=== PATIENT | male | born 1950 ===

== ENCOUNTER 2018-08-22 13:38 | Observation (INO) ==
--- NOTE | 2018-08-22 14:35 | XRay Report ---
SINGLE VIEW CHEST CLINICAL HISTORY: Generalized weakness. FINDINGS: An AP, portable, upright chest radiograph is compared to study 07/10/2015. The cardiomediast inal silhouette is unremarkable. The lungs and pleural spaces are clear. No pneumothorax is seen. The bony thorax is grossly intact. IMPRESSION: No active disease in the chest. Electronically signed by: Luis Felipe Kulkarni M.D. 08/22/2018 2:34 PM
[2018-08-22 14:38] LABS: Basophils # (auto) 0.03 K/uL (0-0.2); Basophils % (auto) 0.5 %; Eosinophils # (auto) 0.49 K/uL (0-0.5); Eosinophils % (auto) 8.6 %; Hematocrit (blood only) 37.9 % (42-52); Hemoglobin 13.3 g/dL (14.0-18.0); Immature Granulocytes # (auto) 0.01 K/uL (0.00-0.02); Immature Granulocytes % (auto) 0.2 %; Lymphocytes # (auto) 1.55 K/uL (1.2-3.4); Lymphocytes % (auto) 27.2 %; Mean Corpuscular Hgb Conc 35.1 g/dL (32-36); Mean Corpuscular Volume 88.6 fL (80-100); Mean Platelet Volume 9.3 fL (7.4-10.4); Monocytes # (auto) 0.49 K/uL (0.11-0.59); Monocytes % (auto) 8.6 %; Neutrophils # (auto) 3.12 K/uL (1.4-6.5); Neutrophils % (auto) 54.9 %; Platelet Count 201 K/uL (130-400); RDW Coefficient of Variation 12.7 % (11.5-14.5); RDW Standard Deviation 40.1 fL (36.4-46.3); Red Blood Count 4.28 M/uL (4.7-6.1); White Blood Count 5.69 K/uL (4.8-10.8)
--- NOTE | 2018-08-22 14:48 | CT Scan Report ---
CT SCAN OF THE BRAIN WITHOUT IV CONTRAST CLINICAL HISTORY: Fall. Head injury. COMPARISON STUDY: No priors. TECHNIQUE: Unenhanced axial CT scan of the brain is performed from the vertex to the skull base. A d ose lowering technique was utilized adhering to the principles of ALARA. CT DOSE: 611.78 mGycm FINDINGS: Brain parenchyma: The brain parenchyma is normal in appearance. There is no hemorrhage, mass effect, or evidence of acute territorial ischemia by CT criteria. Roque-white matter differentiation is preser anastasiya. No extra-axial fluid collection is seen. Ventricles, sulci, cisterns: Normal in configuration. Intracranial vasculature: There is atherosclerotic calcification of the cavernous carotid and vertebr al arteries. Calvarium: There is no depressed calvarial fracture. Sinuses and mastoids: The visualized paranasal sinuses are clear. The mastoid air cells are well pneu matized. Orbits: The bony orbits are grossly intact. There are bilateral ocular lens implants. IMPRESSION: There is no hemorrhage, mass effect, or evidence of acute territorial ischemia by CT colby mancini. Electronically signed by: Luis Felipe Kulkarni M.D. 08/22/2018 2:45 PM
[2018-08-22 14:55] LABS: Alanine Aminotransferase 34 U/L (12-78); Aspartate Aminotransferase 23 U/L (15-37); BUN Creatinine Ratio 15.3 (10-20); Blood Urea Nitrogen 18 mg/dl (7-18); Calcium 8.5 mg/dl (8.5-10.1); Carbon Dioxide 26 mmol/L (21-32); Chloride 105 mmol/L (98-107); Est GFR (African American) 73.6; Est GFR (Non-African American) 63.5; Glucose 125 mg/dl (70-99); Magnesium 1.9 mg/dl (1.8-2.4); Potassium 4.1 mmol/L (3.5-5.1); Sodium 136 mmol/L (136-145)
--- NOTE | 2018-08-22 14:55 | CT Scan Report ---
CT SCAN OF THE CERVICAL SPINE CLINICAL HISTORY: Fall. COMPARISON STUDY: No priors. TECHNIQUE: CT scan of the cervical spine is performed from the skull base to the upper thoracic spine . Images are reviewed in the axial, sagittal, and coronal planes. IV contrast was not administered fo r this examination. A dose lowering technique was utilized adhering to the principles of ALARA. CT DOSE: 406.99 mGycm FINDINGS: Skeletal structures: The skeletal structures are osteopenic. There is no evidence of fracture or subl uxation involving the cervical spine. Vertebral body height and alignment are maintained. The odonto id process and lateral masses are intact. The atlantoaxial articulation is preserved noting mild prod uctive degenerative change. The spinous processes appear intact. Intervertebral discs: The disc spaces are well maintained. Central canal: Widely patent. Soft tissues: The prevertebral and paraspinous soft tissues are within normal limits. There is athero sclerotic calcification of the carotid bulbs. Calvarium: The visualized calvarium at the skull base appears intact. Brain parenchyma: Partially visualized brain parenchyma the skull base is within normal limits. Sinuses and mastoids: The visualized paranasal sinuses are clear. The mastoid air cells are well pneu matized. Lung apices: Clear as visualized. IMPRESSION: There is no evidence of fracture or subluxation involving the cervical spine. Electronically signed by: Luis Felipe Kulkarni M.D. 08/22/2018 2:54 PM
[2018-08-22 14:59] LABS: INR 1.2 (0.9-1.1); Partial Thromboplastin Time 25.7 Seconds (21.0-31.0); Prothrombin Time 12.1 Seconds (9.0-12.0)
[2018-08-22 15:06] LABS: Albumin Globulin Ratio 1.2 (0.9-2); Alkaline Phosphatase 95 U/L (45-117); Bilirubin,Total 1.2 mg/dl (0.2-1); Globulin 3.3 gm/dl (2.5-4.0); Total Protein 7.3 gm/dl (6.4-8.2); Troponin I < 0.015 ng/ml (0-0.045)
[2018-08-22 15:51] LABS: Appearance Urine Clear (Clear); Bilirubin Urine Negative (Negative); Color Urine Yellow; Glucose Urine UA Negative (Negative); Ketones Urine Negative (Negative); Leukocyte Esterase Urine Negative (Negative); Nitrite Urine Negative (Negative); Protein Urine Negative (Negative); Specific Gravity Urine 1.007 (1.000-1.030); Urobilinogen Urine Negative (Negative); pH Urine 5.5 (4.5-7.5)
--- NOTE | 2018-08-22 16:15 | Emergency Department Note ---
Entered by Kelly Porter acting as a scribe for Chavez Delgado DO History of Present Illness General Chief complaint: Hypertension Stated complaint: FELL 2 DAYS AGO, LOSSING BALANCE, ELEVATED BP Time Seen by Provider: 08/22/18 13:46 Source: patient Mode of arrival: ambulatory Limitations: no limitations History of Present Illness Onset (ago): day(s) 2 Radiation: non-radiation Pain Consistency: + constant Maximum Pain Intensity: 7 Relieved By: + none Exacerbated By: + none Associated symptoms: + other (+back pain); no nausea/vomiting Treatments prior to arrival: none The patient is a 67 year old male who presents to the Emergency Room with complaints hypertension. He reports he fell getting out of the shower 2 days ago , and landed on his buttocks and head after losing his balance. He originally felt fine, but has noticed dizziness for the past day as well as elevated blood pressure. He has never experienced issues with blood pressure in the past. He denies any tinnitus, nausea or vomiting. He complains of back pain but states he has chronic back pain and it actually felt better after the fall. Home Medications Home Medications Medication Instructions Recorded Confirmed Type amoxicillin 500 mg PO QAM 08/22/18 08/22/18 History aspirin [Aspir-81] 81 mg PO QPM 08/22/18 08/22/18 History atenolol 25 mg PO HS 08/22/18 08/22/18 History atorvastatin 80 mg PO QAM 08/22/18 08/22/18 History bimatoprost 1 drp OPHTHALMIC (EYE) DIRECTED 08/22/18 08/22/18 History carisoprodol [Soma] 350 mg PO HS 08/22/18 08/22/18 History clopidogrel 75 mg PO QPM 08/22/18 08/22/18 History isosorbide mononitrate 30 mg PO QAM 08/22/18 08/22/18 History levothyroxine 112 mcg PO DAILYBB 08/22/18 08/22/18 History metformin 500 mg PO BID 08/22/18 08/22/18 History multivitamin 1 tab PO QPM 08/22/18 08/22/18 History niacin 500 mg PO QPM 08/22/18 08/22/18 History ranitidine HCl [Zantac] 150 mg PO BID 08/22/18 08/22/18 History ranolazine [Ranexa] 500 mg PO BID 08/22/18 08/22/18 History Allergies Allergy/AdvReac Type Severity Reaction Status Date / Time tamsulosin Allergy Intermediate INCREASED Verified 08/22/18 14:57 B/P, [place], DECREASED URINE OUTPUT Past Med/Surg History Medical History CAD (coronary artery disease) Social History Feels Safe at Home: Yes Smoking Status: Never smoker Review of Systems See HPI for pertinent positives & negatives. and A total of 10 systems reviewed and were otherwise negative Physical Exam Vital Signs Vital Signs - 24 hr 08/22/18 13:44 08/22/18 14:18 08/22/18 14:26 Temperature 36.3 C L Temperature Source Oral Sepsis Recent Fever Within 48 Hours No Sepsis New/Unexplained Change in Mental Status No Sepsis Action Taken by Nursing No Action Required Pulse Rate 60 60 Pulse Rate [Apical] 50 L Respiratory Rate 20 20 20 Respiratory Effort / Characteristics Non-Labored Spontaneous Respiratory Depth Normal Respiratory Pattern Regular Blood Pressure 150/90 H Blood Pressure [Right Arm] Blood Pressure Mean 110 Blood Pressure Mean [Right Arm] Blood Pressure Position [Right Arm] Pulse Oximetry 100 100 100 Oxygen Delivery Method Room Air Room Air Room Air 08/22/18 14:51 08/22/18 15:00 08/22/18 15:30 Temperature Temperature Source Sepsis Recent Fever Within 48 Hours Sepsis New/Unexplained Change in Mental Status Sepsis Action Taken by Nursing Pulse Rate Pulse Rate [Apical] 52 L 53 L 52 L Respiratory Rate 20 16 20 Respiratory Effort / Characteristics Non-Labored Spontaneous Non-Labored Spontaneous Respiratory Depth Normal Normal Respiratory Pattern Regular Blood Pressure Blood Pressure [Right Arm] 120/62 107/62 97/59 L Blood Pressure Mean Blood Pressure Mean [Right Arm] 81 77 71 Blood Pressure Position [Right Arm] Lying Pulse Oximetry 99 98 99 Oxygen Delivery Method Room Air Room Air Room Air 08/22/18 17:37 Temperature Temperature Source Sepsis Recent Fever Within 48 Hours Sepsis New/Unexplained Change in Mental Status Sepsis Action Taken by Nursing Pulse Rate Pulse Rate [Apical] 64 Respiratory Rate 18 Respiratory Effort / Characteristics Respiratory Depth Respiratory Pattern Blood Pressure Blood Pressure [Right Arm] 132/75 Blood Pressure Mean Blood Pressure Mean [Right Arm] 94 Blood Pressure Position [Right Arm] Pulse Oximetry 99 Oxygen Delivery Method Room Air GENERAL: Patient is awake, alert, and in no acute distress.Patient is resting comfortably and showing no signs of anxiety EYES: The conjunctivae are clear. The pupils are round and reactive. EARS, NOSE, MOUTH AND THROAT: The nose is without any evidence of any deformity. Mucous membranes are moist. Tongue is midline. TM clear bilaterally. NECK: The neck is nontender and supple. RESPIRATORY: Normal respiratory effort is noted. There is no evidence of wheezing rhonchi or rales to auscultation. CARDIOVASCULAR: Regular rate and rhythm noted. There no murmurs rubs or gallops normal S1 normal S2 GASTROINTESTINAL: The abdomen is soft. Bowel sounds are present in all quadrants. Abdomen is nontender. BACK: No midline tenderness or or step-off noted range of motion in flexion extension as well as rotation no signs of muscle spasm noted. MUSCULOSKELETAL/EXTREMITIES: There is no evidence of gross deformity. Full range of motion is noted in the hips and shoulders. SKIN: There is no obvious evidence of any rash. There are no petechiae, pallor or cyanosis noted. NEUROLOGIC: Patient is awake alert and oriented x3. [Strength is symmetric. Patellar reflexes are 2+ bilaterally.] Course 1350: Past medical records reviewed. The patient was evaluated in room B4, and a complete history and physical examination were performed. 1510: I reevaluated the patient. He is resting comfortably. 1600: I reevaluated the patient. He is resting comfortably. I discussed his results and discharge instructions and he verbalized complete understanding and agreement. 1755: I discussed this case with the on-call [facility] neurologist, Dr. Siegel. She recommends continued antiplatelet therapy and further workup including MRI. 1810: I discussed this case with the on-call [facility] hospitalist, Dr. Pelayo. He will evaluate the patient in the emergency department for further management and disposition. Administered Medications Ioversol (Optiray 320 125ml) 120 ml IV ONCE PRN PRN Reason: Interaction Checking Stop: 08/26/18 17:08 Last Admin: 08/22/18 17:10 Dose: 120 ml Medical Decision Making Differential Diagnosis Differential: Benign Hypertension, Hypertensive Urgency/Emergency, Cardiovascular Pathology, Endocrine, Metabolic/Electrolyte, Renal Disease, Endorgan Damage, amongst other pathologies entertained. Medical Records Attestation: I reviewed the patient's medical records. Home Medications Current Medication List: was personally reviewed by me Laboratory Data Attestation: I reviewed the patient's lab results. Result diagrams: 08/22/18 14:20 08/22/18 14:20 Lab Results 08/22/18 08/22/18 08/22/18 Range/Units 14:20 14:20 14:20 WBC 5.69 (4.8-10.8) K/uL RBC 4.28 L (4.7-6.1) M/uL Hgb 13.3 L (14.0-18.0) g/dL Hct 37.9 L (42-52) % MCV 88.6 (80-100) fL MCH 31.1 (25-34) pg MCHC 35.1 (32-36) g/dL RDW Std Deviation 40.1 (36.4-46.3) fL RDW Coeff of Olaf 12.7 (11.5-14.5) % Plt Count 201 (130-400) K/uL MPV 9.3 (7.4-10.4) fL Immature Gran % (Auto) 0.2 % Neut % (Auto) 54.9 % Lymph % (Auto) 27.2 % [place] % (Auto) 8.6 % Eos % (Auto) 8.6 % Baso % (Auto) 0.5 % Immature Gran # (Auto) 0.01 (0.00-0.02) K/uL Neut # (Auto) 3.12 (1.4-6.5) K/uL Lymph # (Auto) 1.55 (1.2-3.4) K/uL [place] # (Auto) 0.49 (0.11-0.59) K/uL Eos # (Auto) 0.49 (0-0.5) K/uL Baso # (Auto) 0.03 (0-0.2) K/uL PT 12.1 H (9.0-12.0) Seconds INR 1.2 H (0.9-1.1) APTT 25.7 (21.0-31.0) Seconds PTT Ratio 1.0 Sodium 136 (136-145) mmol/L Potassium 4.1 (3.5-5.1) mmol/L Chloride 105 (98-107) mmol/L Carbon Dioxide 26 (21-32) mmol/L Anion Gap 5.0 (3-11) BUN 18 (7-18) mg/dl Creatinine 1.18 (0.6-1.4) mg/dl Est Cr Clr Drug Dosing Not Reportable Est GFR ( Amer) 73.6 Est GFR (Non-Af Amer) 63.5 BUN/Creatinine Ratio 15.3 (10-20) Glucose 125 H (70-99) mg/dl Calcium 8.5 (8.5-10.1) mg/dl Magnesium 1.9 (1.8-2.4) mg/dl Total Bilirubin 1.2 H (0.2-1) mg/dl AST 23 (15-37) U/L ALT 34 (12-78) U/L Alkaline Phosphatase 95 (45-117) U/L Troponin I < 0.015 (0-0.045) ng/ml Total Protein 7.3 (6.4-8.2) gm/dl Albumin 4.0 (3.4-5.0) gm/dl Globulin 3.3 (2.5-4.0) gm/dl Albumin/Globulin Ratio 1.2 (0.9-2) TSH 0.110 L (0.300-4.500) uIu/ml Free T4 1.50 (0.8-1.6) ng/dl Urine Color Urine Appearance (Clear) Urine pH (4.5-7.5) Ur Specific [place] (1.000-1.030) Urine Protein (Negative) Urine Glucose (UA) (Negative) Urine Ketones (Negative) Urine Blood (Negative) Urine Nitrite (Negative) Urine Bilirubin (Negative) Urine Urobilinogen (Negative) Ur Leukocyte Esterase (Negative) 08/22/18 08/22/18 Range/Units 14:20 15:05 WBC (4.8-10.8) K/uL RBC (4.7-6.1) M/uL Hgb (14.0-18.0) g/dL Hct (42-52) % MCV (80-100) fL MCH (25-34) pg MCHC (32-36) g/dL RDW Std Deviation (36.4-46.3) fL RDW Coeff of Olaf (11.5-14.5) % Plt Count (130-400) K/uL MPV (7.4-10.4) fL Immature Gran % (Auto) % Neut % (Auto) % Lymph % (Auto) % [place] % (Auto) % Eos % (Auto) % Baso % (Auto) % Immature Gran # (Auto) (0.00-0.02) K/uL Neut # (Auto) (1.4-6.5) K/uL Lymph # (Auto) (1.2-3.4) K/uL [place] # (Auto) (0.11-0.59) K/uL Eos # (Auto) (0-0.5) K/uL Baso # (Auto) (0-0.2) K/uL PT (9.0-12.0) Seconds INR (0.9-1.1) APTT (21.0-31.0) Seconds PTT Ratio Sodium (136-145) mmol/L Potassium (3.5-5.1) mmol/L Chloride (98-107) mmol/L Carbon Dioxide (21-32) mmol/L Anion Gap (3-11) BUN (7-18) mg/dl Creatinine (0.6-1.4) mg/dl Est Cr Clr Drug Dosing Est GFR ( Amer) Est GFR (Non-Af Amer) BUN/Creatinine Ratio (10-20) Glucose (70-99) mg/dl Calcium (8.5-10.1) mg/dl Magnesium (1.8-2.4) mg/dl Total Bilirubin (0.2-1) mg/dl AST (15-37) U/L ALT (12-78) U/L Alkaline Phosphatase (45-117) U/L Troponin I (0-0.045) ng/ml Total Protein (6.4-8.2) gm/dl Albumin (3.4-5.0) gm/dl Globulin (2.5-4.0) gm/dl Albumin/Globulin Ratio (0.9-2) TSH (0.300-4.500) uIu/ml Free T4 Cancelled (0.8-1.6) ng/dl Urine Color Yellow Urine Appearance Clear (Clear) Urine pH 5.5 (4.5-7.5) Ur Specific [place] 1.007 (1.000-1.030) Urine Protein Negative (Negative) Urine Glucose (UA) Negative (Negative) Urine Ketones Negative (Negative) Urine Blood Negative (Negative) Urine Nitrite Negative (Negative) Urine Bilirubin Negative (Negative) Urine Urobilinogen Negative (Negative) Ur Leukocyte Esterase Negative (Negative) Imaging Data Radiologist's Impression: Radiology results as stated below per my review and the radiologist's interpretation: CT SCAN OF THE BRAIN WITHOUT IV CONTRAST CLINICAL HISTORY: Fall. Head injury. COMPARISON STUDY: No priors. TECHNIQUE: Unenhanced axial CT scan of the brain is performed from the vertex to the skull base. A dose lowering technique was utilized adhering to the principles of ALARA. CT DOSE: 611.78 mGycm FINDINGS: Brain parenchyma: The brain parenchyma is normal in appearance. There is no hemorrhage, mass effect, or evidence of acute territorial ischemia by CT criteria. Roque-white matter differentiation is preserved. No extra-axial fluid collection is seen. Ventricles, sulci, cisterns: Normal in configuration. Intracranial vasculature: There is atherosclerotic calcification of the cavernous carotid and vertebral arteries. Calvarium: There is no depressed calvarial fracture. Sinuses and mastoids: The visualized paranasal sinuses are clear. The mastoid air cells are well pneumatized. Orbits: The bony orbits are grossly intact. There are bilateral ocular lens implants. IMPRESSION: There is no hemorrhage, mass effect, or evidence of acute territorial ischemia by CT criteria. Electronically signed by: Luis Felipe Kulkarni M.D. 08/22/2018 2:45 PM SINGLE VIEW CHEST CLINICAL HISTORY: Generalized weakness. FINDINGS: An AP, portable, upright chest radiograph is compared to study 2014. The cardiomediastinal silhouette is unremarkable. The lungs and pleural spaces are clear. No pneumothorax is seen. The bony thorax is grossly intact. IMPRESSION: No active disease in the chest. Electronically signed by: Luis Felipe Kulkarni M.D. 08/22/2018 2:[address] SCAN OF THE CERVICAL SPINE CLINICAL HISTORY: Fall. COMPARISON STUDY: No priors. TECHNIQUE: CT scan of the cervical spine is performed from the skull base to the upper thoracic spine. Images are reviewed in the axial, sagittal, and coronal planes. IV contrast was not administered for this examination. A dose lowering technique was utilized adhering to the principles of ALARA. CT DOSE: 406.99 mGycm FINDINGS: Skeletal structures: The skeletal structures are osteopenic. There is no evidence of fracture or subluxation involving the cervical spine. Vertebral body height and alignment are maintained. The odontoid process and lateral masses are intact. The atlantoaxial articulation is preserved noting mild productive degenerative change. The spinous processes appear intact. Intervertebral discs: The disc spaces are well maintained. Central canal: Widely patent. Soft tissues: The prevertebral and paraspinous soft tissues are within normal limits. There is atherosclerotic calcification of the carotid bulbs. Calvarium: The visualized calvarium at the skull base appears intact. Brain parenchyma: Partially visualized brain parenchyma the skull base is within normal limits. Sinuses and mastoids: The visualized paranasal sinuses are clear. The mastoid air cells are well pneumatized. Lung apices: Clear as visualized. IMPRESSION: There is no evidence of fracture or subluxation involving the cervical spine. Electronically signed by: Luis Felipe Kulkarni M.D. 08/22/2018 2:54 PM ECG Data Attestation: I personally reviewed and interpreted this ECG as follows: Indication: other (hypertension) Rate (beats per minute): 50 Rhythm: sinus bradycardia Findings: + other (No acute ST segments); no ectopy Comparison ECG Date: from (07/10/2015) Change: no significant change MDM Narrative The patient is a 67-year-old male who presented to the emergency department for vertigo type symptoms. The patient does relate that he had a fall recently where he struck the back of his head. He had pain in the right occiput. Patient did not have any focal neurologic deficit. He had no difficulty ambulating or ataxia. The patient was concerned that he may have a head injury. The patient was also concerned because his blood pressure was fluctuating and was found to be elevated on multiple occasions. I discussed the patient's laboratory and radiographic studies with him. He was reevaluated multiple times. At this time I would be concerned that this could be vertigo or possibly related to a postconcussive type syndrome. The patient was encouraged to rest and avoid any strenuous activity. He was also encouraged to continue all medications as prescribed and follow-up with his family doctor for possible further testing such as MRI of the brain or referral to a concussion specialist or neurologist. Otherwise I did encourage him to return to the emergency department immediately if symptoms change worsen or the need arises. I went to reevaluate the patient prior to discharge and he had talked to a friend who recommended a CT angiography to ensure there is no dissection. Given the fall I thought this might be appropriate. I discussed the CT angiography of the head and neck with the patient. 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 This could be the cause of his symptoms leading to a central cause for his vertigo. This does not appear as likely but I discussed his case with the on-call [facility] neurologist as well as the on- call [facility] hospitalist. The patient may require further neuro imaging and observation to ensure that he does not develop worsening posterior fossa symptoms. The patient was agreeable to this evaluation. Impression & Plan VBI (vertebrobasilar insufficiency), Head injury, Concussion, Vertigo Discharge Plan Visit Data Chief Complaint: Hypertension Stated Complaint: FELL 2 DAYS AGO, LOSSING BALANCE, ELEVATED BP ED Provider: Chavez Delgado Discharge Problem: VBI (vertebrobasilar insufficiency), Head injury, Concussion, Vertigo Patient Disposition: Home - Self-Care Condition: Good Discharge Instructions Angelito/Other Patient Handouts: ED Concussion, ED Vertigo Unspecified Activity Restrictions/Additional Instructions: Continue all medications as prescribed. Rest and avoid any strenuous activity. Call your family doctor to schedule a follow-up appointment. You may require further studies such as an MRI of the brain or possibly a referral to a concussion specialist or neurologist to further evaluate the cause your symptoms. Consider trying meclizine for symptomatic relief. Return to the emergency department immediately if symptoms change worsen or the need arises. Forms Stand Alone Forms: My [facility], Important Visit Information Prescriptions Prescriptions: No Action multivitamin Tablet 1 tab PO QPM RF: 0 carisoprodol [Soma] 350 mg Tablet 350 mg PO HS RF: 0 amoxicillin 500 mg Capsule 500 mg PO QAM RF: 0 atorvastatin 80 mg Tablet 80 mg PO QAM RF: 0 isosorbide mononitrate 30 mg Tablet Extended Release 24 Hr 30 mg PO QAM RF: 0 atenolol 25 mg Tablet 25 mg PO HS RF: 0 bimatoprost 0.03 % Drops 1 drp OPHTHALMIC (EYE) DIRECTED RF: 0 clopidogrel 75 mg Tablet 75 mg PO QPM RF: 0 aspirin [Aspir-81] 81 mg Tablet,Delayed Release (Dr/Ec) 81 mg PO QPM RF: 0 ranitidine HCl [Zantac] 150 mg Tablet 150 mg PO BID RF: 0 niacin 500 mg Capsule, Extended Release 500 mg PO QPM RF: 0 metformin 500 mg Tablet Extended Release 24 Hr 500 mg PO BID RF: 0 levothyroxine 112 mcg Tablet 112 mcg PO DAILYBB RF: 0 ranolazine [Ranexa] 500 mg Tablet Extended Release 12 Hr 500 mg PO BID RF: 0 Referrals Referrals: London Ryan MD [Primary Care Provider] - The scribe's documentation has been prepared under my direction and personally reviewed by me in its entirety. I confirm that the note above accurately reflects all work, treatment, procedures, and medical decision making performed by me.
[2018-08-22] MEDS ORDERED: OPTIRAY 320 125ml IV PRN (17:09)
--- NOTE | 2018-08-22 17:30 | CT Scan Report ---
CT ANGIOGRAPHY OF THE NECK WITH CONTRAST CLINICAL HISTORY: Fall. COMPARISON STUDY: None. Technique: CT angiography of the carotid and vertebral arteries was obtained using DeluuxraBranch2 320 IV and 3D reconstruction on an independent workstation. NASCET criteria was utilized. Automated exposure c ontrol was utilized for the study. A dose lowering technique was utilized adhering to the principles of ALARA. Findings: Lung apices are clear. There is no cervical lymphadenopathy. There is no cervical spine fra cture. No dissection is noted within the major vessels of the neck. There is mild atherosclerotic julian que within the major vessels of the neck. There is no stenosis within the bilateral common carotid an d internal carotid arteries. The origin of the left vertebral artery is suboptimally assessed on this exam but there is no evidence for a severe stenosis. There is moderate to severe stenosis of the pro ximal intracranial portion of the left vertebral artery IMPRESSION: 1. No dissection or stenosis within the major vessels of the neck. Mild atherosclerotic plaque. 2. 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 Electronically signed by: Ganga Adams M.D. 08/22/2018 5:29 PM
--- NOTE | 2018-08-22 17:35 | CT Scan Report ---
CTA ANGIOGRAPHY OF THE HEAD CLINICAL HISTORY: Fall. COMPARISON STUDY: Head CT performed earlier today. TECHNIQUE: Helical axial images of the head were obtained following uneventful intravenous administr ation of 120 cc of Optiray 320. Automated exposure control was utilized for the study. A dose lower ing technique was utilized adhering to the principles of ALARA. CT DOSE: 620.33 mGy.cm FINDINGS: There is moderate to severe stenosis within the proximal intracranial portion of the left v ertebral artery. persistence of the right posterior cerebral artery is noted. There is moderate calcified plaque within the bilateral cavernous carotids with minimal stenosis of the left cavernous carotid. There is no intracranial aneurysm or dissection. No abrupt vessel cut off is identified. No acute intracranial hemorrhage, midline shift or mass effect is present. No calvarial fracture is jennifer ntified. IMPRESSION: 1. No abrupt vessel cut off, dissection or aneurysm within the intracranial circulation. 2. 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 3. Moderate calcified atherosclerotic plaque within the bilateral cavernous carotids with minimal navneet rowing of the left cavernous carotid. Electronically signed by: Ganga Adams M.D. 08/22/2018 5:33 PM
--- NOTE | 2018-08-22 19:29 | Discharge Summary ---
Date of Service August 22, 2018 Discharge Data Allergies Allergy/AdvReac Type Severity Reaction Status Date / Time tamsulosin Allergy Intermediate INCREASED Verified 08/22/18 14:57 B/P, MONTAÑO, DECREASED URINE OUTPUT Consultations 08/22/18 18:12 ED Decision to Admit Stat Ordered Studies 08/22/18 13:52 CT cervical spine wo con Stat CT head/brain wo con Stat 08/22/18 16:55 CT angio head w con Stat CT angio neck with con Stat Discharge Plan Visit Data Chief Complaint: Hypertension Stated Complaint: FELL 2 DAYS AGO, LOSSING BALANCE, ELEVATED BP ED Provider: Chavez Delgado Patient Disposition: Home - Self-Care Condition: Good Discharge Instructions Krames/Other Patient Handouts: ED Concussion, ED Vertigo Unspecified Activity Restrictions/Additional Instructions: Continue all medications as prescribed. Rest and avoid any strenuous activity. Call your family doctor to schedule a follow-up appointment. You may require further studies such as an MRI of the brain or possibly a referral to a concussion specialist or neurologist to further evaluate the cause your symptoms. Consider trying meclizine for symptomatic relief. Return to the emergency department immediately if symptoms change worsen or the need arises. Forms Stand Alone Forms: [facility], Important Visit Information Prescriptions Prescriptions: No Action multivitamin Tablet 1 tab PO QPM RF: 0 carisoprodol [Soma] 350 mg Tablet 350 mg PO HS RF: 0 amoxicillin 500 mg Capsule 500 mg PO BID RF: 0 atorvastatin 80 mg Tablet 80 mg PO QAM RF: 0 isosorbide mononitrate 30 mg Tablet Extended Release 24 Hr 30 mg PO QAM RF: 0 atenolol 25 mg Tablet 25 mg PO HS RF: 0 bimatoprost 0.03 % Drops 1 drp OPHTHALMIC (EYE) DIRECTED RF: 0 clopidogrel 75 mg Tablet 75 mg PO QPM RF: 0 aspirin [Aspir-81] 81 mg Tablet,Delayed Release (Dr/Ec) 81 mg PO QPM RF: 0 ranitidine HCl [Zantac] 150 mg Tablet 150 mg PO BID RF: 0 niacin 500 mg Capsule, Extended Release 500 mg PO QPM RF: 0 metformin 500 mg Tablet Extended Release 24 Hr 500 mg PO BID RF: 0 levothyroxine 112 mcg Tablet 112 mcg PO DAILYBB RF: 0 ranolazine [Ranexa] 500 mg Tablet Extended Release 12 Hr 500 mg PO BID RF: 0 B12 1,000 mg 1 tab PO TID RF: 0 magnesium 400 mg 1 tab PO TID RF: 0 Referrals Referrals: London Ryan MD [Primary Care Provider] -
[2018-08-22] MEDS ORDERED: ASPIRIN 81 MG ECTAB PO SCH (21:00)
[2018-08-22] MEDS ORDERED: ATENOLOL 25 MG TABLET PO SCH (21:00)
[2018-08-22] MEDS ORDERED: B12 PO SCH (21:00)
[2018-08-22] MEDS ORDERED: SODIUM CHLORIDE 0.9% 1000ML 1,000 ML IV SCH (21:00)
[2018-08-22] MEDS ORDERED: NON-FORMULARY MEDICATION (Magnesium 1 TAB) PO SCH (21:00)
[2018-08-22] MEDS ORDERED: MULTIVITAMIN TAB PO SCH (21:00)
[2018-08-22] MEDS ORDERED: CLOPIDOGREL BISULFATE 75 MG TAB PO SCH (21:00)
[2018-08-22] MEDS ORDERED: NIACIN EXTENDED REL 500 MG TABCR PO SCH (21:00)
[2018-08-22] MEDS: AMOXICILLIN 500 MG CAP PO SCH (21:28)
[2018-08-22] MEDS: RANOLAZINE 500 MG ER TAB PO SCH (21:31)
[2018-08-22] MEDS: [UNRECOGNIZED DRUG - OTHER] SCH (23:05)
--- NOTE | 2018-08-23 02:10 | History & Physical Report ---
Date of Service August 22, 2018 Assessment & Plan (1) Vertigo: Mechanical Fall Due to recent head injury from the fall CT head showed no intracranial abnormality CTA head and neck showed moderate to severe stenosis of the proximal intracranial portion of the left vertebral artery. 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 recommended to get an MRI of the brain PT/OT eval Fall precaution (2) Diabetes mellitus type 2 in nonobese: Most recent Hba1c 6.8 on 05/21 Hold metformin Continue monitor BS (3) CAD (coronary artery disease): Denies any chest pain Continue plavix, aspirin, atenolol and statin (4) Dyslipidemia: On Statin (5) Hypothyroid: TSH is low Will decrease levotyroxine to 100mcg Check TSH in 4 to 6 weeks DVT px on lovenox subq CODE status Full code History of Present Illness Chief Complaint: Dizziness Primary Care Provider: London Ryan MD 67 yo Male with PMH of Diabetes, hypothyroidism, dyslipidemia present to the ER with dizziness. Pt said that about 2 days ago he slipped and fell well getting out of the shower and hit his head. He said that the next day that he noted some dizziness. He said that he did a neuro exam and was normal. He said that he continues to have intermittent episodes of dizziness. He said that he feels like the room was spinning around. He said that he has chronic back and hip pain but since after the fall that he walked alittle better because he put more weight on the good leg to compensate for the bad one. He said that he noticed muscle fasciculations in his lower extremities. He said that he checked his BP and was elevated in the 160 systolic. He said that he called a classmate that advised him to go to the ER for eval. Pt said that after the alysia Hallpike and kelley maneuver done in the ER, now he developed a headache. CT head done in the ER showed no acute finding. CTA head showed moderate to severe stenosis of the proximal intracranial portion of the left vertebral artery. Denies any chest pain, palpitation, slurred speech and weakness and numbness. Allergies Allergy/AdvReac Type Severity Reaction Status Date / Time tamsulosin Allergy Intermediate INCREASED Verified 08/22/18 14:57 B/P, MONTAÑO, DECREASED URINE OUTPUT Home Medications Home Medications Medication Instructions Recorded Confirmed Type B12 1 tab PO TID 08/22/18 08/22/18 History amoxicillin 500 mg PO BID 08/22/18 08/22/18 History aspirin [Aspir-81] 81 mg PO QPM 08/22/18 08/22/18 History atenolol 25 mg PO HS 08/22/18 08/22/18 History atorvastatin 80 mg PO QAM 08/22/18 08/22/18 History bimatoprost 1 drp OPHTHALMIC (EYE) DIRECTED 08/22/18 08/22/18 History carisoprodol [Soma] 350 mg PO HS 08/22/18 08/22/18 History clopidogrel 75 mg PO QPM 08/22/18 08/22/18 History isosorbide mononitrate 30 mg PO QAM 08/22/18 08/22/18 History levothyroxine 112 mcg PO DAILYBB 08/22/18 08/22/18 History magnesium 1 tab PO TID 08/22/18 08/22/18 History metformin 500 mg PO BID 08/22/18 08/22/18 History multivitamin 1 tab PO QPM 08/22/18 08/22/18 History niacin 500 mg PO QPM 08/22/18 08/22/18 History ranitidine HCl [Zantac] 150 mg PO BID 08/22/18 08/22/18 History ranolazine [Ranexa] 500 mg PO BID 08/22/18 08/22/18 History Past Med/Surg History Medical History CAD (coronary artery disease) Social History Current Living Situation: Spouse Other Information That Helps Us Care for You: No Feels Safe at Home: Yes Safety Concerns: Feels Safe At This Time Smoking Status: Never smoker Hx Alcohol Use: No Hx Substance Use: No Beliefs That Will Affect Care: None Preferred Language: Ghanaian Communication Ability: Effective 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 Review of Systems All systems reviewed & are unremarkable except as noted in HPI & below Physical Exam 2 Vital Signs (Past 24 Hours): Last Vital Signs Temp 36.4 C L 08/23/18 00:00 Pulse 59 L 08/23/18 00:00 Resp 20 08/23/18 00:00 BP 109/61 08/23/18 00:00 Pulse Ox 98 08/23/18 00:00 Physical Exam: General- No acute distress Head- atraumatic Eyes- PERRL, EOMI, ENT- oropharynx clear Neck- supple, no JVD Lungs- clear to auscultation Heart- regular rhythm; no murmur Abdomen- normal bowel sounds, soft, nontender Extremities- no calf tenderness Neuro- alert, oriented x 3; PERRL, EOMI; no facial palsy; no dysarthria, no nystagmus, no motor and sensation deficit Skin- warm & dry Results & Data Diagnostic Findings CTA ANGIOGRAPHY OF THE HEAD CLINICAL HISTORY: Fall. COMPARISON STUDY: Head CT performed earlier today. TECHNIQUE: Helical axial images of the head were obtained following uneventful intravenous administration of 120 cc of Optiray 320. Automated exposure control was utilized for the study. A dose lowering technique was utilized adhering to the principles of ALARA. CT DOSE: 620.33 mGy.cm FINDINGS: There is moderate to severe stenosis within the proximal intracranial portion of the left vertebral artery. persistence of the right posterior cerebral artery is noted. There is moderate calcified plaque within the bilateral cavernous carotids with minimal stenosis of the left cavernous carotid. There is no intracranial aneurysm or dissection. No abrupt vessel cut off is identified. No acute intracranial hemorrhage, midline shift or mass effect is present. No calvarial fracture is identified. IMPRESSION: 1. No abrupt vessel cut off, dissection or aneurysm within the intracranial circulation. 2. 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 3. Moderate calcified atherosclerotic plaque within the bilateral cavernous carotids with minimal narrowing of the left cavernous carotid. Electronically signed by: Ganga Adams M.D. 08/22/2018 5:33 PM Dictated: 08/22/18 172 Transcribed: 08/22/[address] ANGIOGRAPHY OF THE NECK WITH CONTRAST CLINICAL HISTORY: Fall. COMPARISON STUDY: None. Technique: CT angiography of the carotid and vertebral arteries was obtained using Optiray 320 IV and 3D reconstruction on an independent workstation. NASCET criteria was utilized. Automated exposure control was utilized for the study. A dose lowering technique was utilized adhering to the principles of ALARA. Findings: Lung apices are clear. There is no cervical lymphadenopathy. There is no cervical spine fracture. No dissection is noted within the major vessels of the neck. There is mild atherosclerotic plaque within the major vessels of the neck. There is no stenosis within the bilateral common carotid and internal carotid arteries. The origin of the left vertebral artery is suboptimally assessed on this exam but there is no evidence for a severe stenosis. There is moderate to severe stenosis of the proximal intracranial portion of the left vertebral artery IMPRESSION: 1. No dissection or stenosis within the major vessels of the neck. Mild atherosclerotic plaque. 2. 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 Electronically signed by: Ganga Adams M.D. 08/22/2018 5:29 PM Dictated: 08/22/18 1721 Transcribed: 08/22/[address] SCAN OF THE BRAIN WITHOUT IV CONTRAST CLINICAL HISTORY: Fall. Head injury. COMPARISON STUDY: No priors. TECHNIQUE: Unenhanced axial CT scan of the brain is performed from the vertex to the skull base. A dose lowering technique was utilized adhering to the principles of ALARA. CT DOSE: 611.78 mGycm FINDINGS: Brain parenchyma: The brain parenchyma is normal in appearance. There is no hemorrhage, mass effect, or evidence of acute territorial ischemia by CT criteria. Roque-white matter differentiation is preserved. No extra-axial fluid collection is seen. Ventricles, sulci, cisterns: Normal in configuration. Intracranial vasculature: There is atherosclerotic calcification of the cavernous carotid and vertebral arteries. Calvarium: There is no depressed calvarial fracture. Sinuses and mastoids: The visualized paranasal sinuses are clear. The mastoid air cells are well pneumatized. Orbits: The bony orbits are grossly intact. There are bilateral ocular lens implants. IMPRESSION: There is no hemorrhage, mass effect, or evidence of acute territorial ischemia by CT criteria. Electronically signed by: Luis Felipe Kulkarni M.D. 08/22/2018 2:45 PM Dictated: 08/22/18 1443 Transcribed: 08/22/18 1443 SINGLE VIEW CHEST CLINICAL HISTORY: Generalized weakness. FINDINGS: An AP, portable, upright chest radiograph is compared to study 2014. The cardiomediastinal silhouette is unremarkable. The lungs and pleural spaces are clear. No pneumothorax is seen. The bony thorax is grossly intact. IMPRESSION: No active disease in the chest. Electronically signed by: Luis Felipe Kulkarni M.D. 08/22/2018 2:34 PM Dictated: 08/22/18 1434 Transcribed: 08/22/[address] SCAN OF THE CERVICAL SPINE CLINICAL HISTORY: Fall. COMPARISON STUDY: No priors. TECHNIQUE: CT scan of the cervical spine is performed from the skull base to the upper thoracic spine. Images are reviewed in the axial, sagittal, and coronal planes. IV contrast was not administered for this examination. A dose lowering technique was utilized adhering to the principles of ALARA. CT DOSE: 406.99 mGycm FINDINGS: Skeletal structures: The skeletal structures are osteopenic. There is no evidence of fracture or subluxation involving the cervical spine. Vertebral body height and alignment are maintained. The odontoid process and lateral masses are intact. The atlantoaxial articulation is preserved noting mild productive degenerative change. The spinous processes appear intact. Intervertebral discs: The disc spaces are well maintained. Central canal: Widely patent. Soft tissues: The prevertebral and paraspinous soft tissues are within normal limits. There is atherosclerotic calcification of the carotid bulbs. Calvarium: The visualized calvarium at the skull base appears intact. Brain parenchyma: Partially visualized brain parenchyma the skull base is within normal limits. Sinuses and mastoids: The visualized paranasal sinuses are clear. The mastoid air cells are well pneumatized. Lung apices: Clear as visualized. IMPRESSION: There is no evidence of fracture or subluxation involving the cervical spine. Electronically signed by: Luis Felipe Kulkarni M.D. 08/22/2018 2:54 PM Dictated: 08/22/18 1451 Transcribed: 08/22/18 1451
[2018-08-23] MEDS ORDERED: LEVOTHYROXINE SODIUM 112 MCG TABLET PO SCH (06:30)
[2018-08-23] MEDS: [UNRECOGNIZED DRUG - OTHER] SCH (08:03)
[2018-08-23] MEDS: RANOLAZINE 500 MG ER TAB PO SCH (08:49)
[2018-08-23] MEDS: AMOXICILLIN 500 MG CAP PO SCH (08:51)
[2018-08-23] MEDS ORDERED: ATORVASTATIN 40 MG TAB PO SCH (09:00)
[2018-08-23] MEDS ORDERED: ISOSORBIDE MONO EXTENDED REL 30 MG TABCR PO SCH (09:00)
[2018-08-23] MEDS: ENOXAPARIN INJ 40 MG/0.4 ML SYR SQ SCH ×2 (09:13→10:52)
[2018-08-23] MEDS ORDERED: GADOBUTROL 65ML VIAL IV PRN (10:36)
--- NOTE | 2018-08-23 11:01 | Magnetic Resonance Report ---
Brain MRI WITH AND WITHOUT CONTRAST HISTORY: Dizziness/ left vertebral artery stenosis TECHNIQUE: Multiplanar multisequence MRI of the brain was performed both before and after the intrave nous administration of contrast. COMPARISON STUDY: Head CTA 08/22/2018. FINDINGS: There is no mass, hematoma, midline shift, or acute infarct. The paranasal sinuses are mariam r. The mastoid air cells are clear. The ventricles and sulci demonstrate mild age-related involutiona l changes. Scattered foci of T2 hyperintensity seen within the periventricular and subcortical white matter are nonspecific but suggestive of mild microvascular ischemic changes. The major vascular flow voids at the skull base are well-maintained. No abnormal enhancement. Within the left skull base ant erior to the pontine/medullary junction there is an irregular 5 mm T2 hypointense, T1 isointense extr a-axial lesion. This does not demonstrate significant enhancement. There is no mass effect along the adjacent vascular structures. This is indeterminate but could represent a small meningioma. This is b est seen on the FIESTA sequences image 37 of 92. IMPRESSION: 1. No acute intracranial abnormality. 2. Scattered foci of T2 hyperintensity seen within the periventricular and subcortical white matter a re nonspecific but favor microvascular ischemic change. 3. Within the left skull base anterior to the pontine/medullary junction there is an irregular 5 mm T 2 hypointense, T1 isointense extra-axial lesion. This does not demonstrate significant enhancement. T here is no mass effect along the adjacent vascular structures. This is indeterminate but could repres ent a small meningioma. Follow-up MRI in one year is recommended to ensure stability. Electronically signed by: Galindo Kline M.D. 08/23/2018 10:59 AM
--- NOTE | 2018-08-23 13:44 | Consultation Report ---
DATE: 08/23/2018 REASON FOR CONSULTATION: Dizziness. HISTORY OF PRESENT ILLNESS: The patient is a 67-year-old right-handed male with diabetes, hypothyroidism, dyslipidemia, coronary artery disease, presents to the ER with dizziness. Two days prior to admission, he slipped in the shower, struck the back of the right side of his head on a vanity and fell to the floor. He had immediate neck and shoulder pain, but felt he was neurologically intact, vesasome mild generalized weakness and his self-reported fasciculations in his legs. Friday upon awakening, he rolled in bed, had 12 seconds of vertigo without other neurologic symptoms, otologic symptoms or nausea. This was recurrent with movement and he sought medical attention. He has no prior history of vertigo. There is no hearing loss, ear pain, ringing. The only headache that occured was after the Alva Hallpike manuever in the ER. He has no prior history of stroke. CT of the head with noncontrast was unremarkable. CTA of the head and neck showed stenosis of the origin of the left vertebral artery. MRI of the brain shows 5 mm lesion in the pontomedullary junction, which is extraaxial and nonenhancing. There is no mass effect. It is indeterminant, but may represent a small meningioma. Follow up MRI 1 year is recommended. Scattered T2 hyperintensity in the periventricular white matter. There is no acute abnormality. LABORATORY DATA: Labs were notable for mild anemia at 13.3/37.9. Coags 12.1. INR 1.2. Chemistry notable for a total bilirubin of 1.2, a glucose of 125. Electrocardiogram, sinus bradycardia. PAST MEDICAL HISTORY: Medical history continued, the patient has a history of a head injury remotely. He has a known tremor in his left hand. He has had a fracture of the left elbow resulting in damage to all nerves in the forearm, manifested mostly by some left hand and arm weakness. Glaucoma. PAST SURGICAL HISTORY: Include a lumbar laminectomy, sinus surgery, bilateral cataracts. FAMILY HISTORY: Strong family history of vascular disease. ALLERGIES: TAMSULOSIN. HOME MEDICATIONS: Ranexa, amoxicillin, aspirin, atenolol, atorvastatin, B12, eyedrops bimatoprost, Plavix, aspirin, levothyroxine, multiple vitamins. PHYSICAL EXAMINATION: GENERAL: He is a well-developed male in no distress. He has normal speech and language. His affect is appropriate. CHEST: There is a systolic murmur heard at the aortic area. There is a right supraclavicular bruit. No carotid bruits or vertebral bruits are noted. Radial pulses are palpably symmetric. Some mild tender in the occiput on the right. NECK: Supple. NEUROLOGIC: Pupils were equal. Optic nerves are unremarkable. There is normal price, motility, facial sensation, facial symmetry. Speech and language are normal. Motor: There is mild diffuse weakness of the left hand. There is no drift. There are normal rapid alternating movements. Mild tremor on [id number] bilaterally. [id number] is normal. There is no dysdiadochokinesia. There is symmetric light touch and temperature bilaterally. Vibration sense is appreciated at the ankles. Reflexes are diminished in the lowers. Toes are downgoing. Gait is unremarkable. Tandem unremarkable for age. Romberg negative. Provocative head maneuvers both to left and right, but left more so than right, reproduced the patient's symptoms. No abnormality of eye movement was noted. There was latency and fatiguability. The Erica-Hallpike maneuver in the Emergency Room was positive. 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 PLAN: 1. PT for Nehemias maneuver. 2. 5 mm skull based lesion. Recommend followup MRI 1 year. 3. Left vertebral artery stenosis. Continue current antiplatelet therapy with risk factor modification. 4. Very minor essential tremor. The patient should see me in followup post-discharge. I will then arrange to see him in 1 year and have an MRI of the brain. GIOVANNI Reveles MD [facility]
--- NOTE | 2018-08-23 14:55 | Hospitalist Progress Note ---
Date of Service August 23, 2018 Assessment & Plan (1) Vertigo: Mechanical Fall Due to recent head traumatic head injury from the fall CT head showed no intracranial abnormality CTA head and neck showed moderate to severe stenosis of the proximal intracranial portion of the left vertebral artery. MRI brain showed no acute intracranial abnormality. Physical therapy will try the kelley maneuver case discussed with neuro Follow up with neurology as an outpatient Fall precaution (2) Diabetes mellitus type 2 in nonobese: Most recent Hba1c 6.8 on 05/21 Hold metformin Continue monitor BS Ok to resume metformin after 48 hrs due to the constrast (3) CAD (coronary artery disease): Denies any chest pain Continue plavix, aspirin, atenolol and statin (4) Dyslipidemia: On Statin (5) Hypothyroid: TSH is low Will decrease levotyroxine to 100mcg Check TSH in 4 to 6 weeks Headache Due to head traumatic injury Improves Small meningioma Incidental finding on MRI head. Will need repeat MRI in 1 year. Follow up with neurology DVT px on lovenox subq CODE status Full code Disposition Will discharge home today Subjective Pt was seen and examined Lying in bed with no distress Pt said that he feels fine He said that headache improves He said that he only had 1 episode of dizziness today Denies any chest pain, palpitation, and SOB Physical Exam 2 Vital Signs (Past 24 Hours): Last Vital Signs Temp 36.6 C 08/23/18 07:41 Pulse 57 L 08/23/18 07:41 Resp 20 08/23/18 07:41 BP 119/69 08/23/18 07:41 Pulse Ox 96 08/23/18 07:41 Physical Exam: General- No acute distress Head- atraumatic Eyes- PERRL, EOMI, ENT- oropharynx clear Neck- supple, no JVD Lungs- clear to auscultation Heart- regular rhythm; no murmur Abdomen- normal bowel sounds, soft, nontender Extremities- no calf tenderness Neuro- alert, oriented x 3; PERRL, EOMI; no facial palsy; no dysarthria Skin- warm & dry
[2018-08-24 07:22] LABS: Estimated Average Glucose 143 mg/dl
--- NOTE | 2018-08-24 08:57 | Discharge Summary ---
Date of Service August 23, 2018 Admission HPI Per Admitting Provider 67 yo Male with PMH of Diabetes, hypothyroidism, dyslipidemia present to the ER with dizziness. Pt said that about 2 days ago he slipped and fell well getting out of the shower and hit his head. He said that the next day that he noted some dizziness. He said that he did a neuro exam and was normal. He said that he continues to have intermittent episodes of dizziness. He said that he feels like the room was spinning around. He said that he has chronic back and hip pain but since after the fall that he walked alittle better because he put more weight on the good leg to compensate for the bad one. He said that he noticed muscle fasciculations in his lower extremities. He said that he checked his BP and was elevated in the 160 systolic. He said that he called a classmate that advised him to go to the ER for eval. Pt said that after the alysia Hallpike and kelley maneuver done in the ER, now he developed a headache. CT head done in the ER showed no acute finding. CTA head showed moderate to severe stenosis of the proximal intracranial portion of the left vertebral artery. Denies any chest pain, palpitation, slurred speech and weakness and numbness. Admission Exam Per Admitting Provider General- No acute distress Head- atraumatic Eyes- PERRL, EOMI, ENT- oropharynx clear Neck- supple, no JVD Lungs- clear to auscultation Heart- regular rhythm; no murmur Abdomen- normal bowel sounds, soft, nontender Extremities- no calf tenderness Neuro- alert, oriented x 3; PERRL, EOMI; no facial palsy; no dysarthria, no nystagmus, no motor and sensation deficit Skin- warm & dry Principal Diagnosis Vertigo Small meningioma Headache Discharge Exam General- No acute distress Head- atraumatic Eyes- PERRL, EOMI, ENT- oropharynx clear Neck- supple, no JVD Lungs- clear to auscultation Heart- regular rhythm; no murmur Abdomen- normal bowel sounds, soft, nontender Extremities- no calf tenderness Neuro- alert, oriented x 3; PERRL, EOMI; no facial palsy; no dysarthria Skin- warm & dry Discharge Data Allergies Allergy/AdvReac Type Severity Reaction Status Date / Time tamsulosin Allergy Intermediate INCREASED Verified 08/22/18 14:57 B/P, [place], DECREASED URINE OUTPUT Consultations 08/22/18 18:12 ED Decision to Admit Stat 08/22/18 20:11 Consult Neurology Routine 08/23/18 15:20 Burn CD for patient Routine Ordered Studies 08/22/18 13:52 CT cervical spine wo con Stat CT head/brain wo con Stat 08/22/18 16:55 CT angio head w con Stat CT angio neck with con Stat 08/23/18 20:11 MR brain wo/w con Routine Brain MRI WITH AND WITHOUT CONTRAST HISTORY: Dizziness/ left vertebral artery stenosis TECHNIQUE: Multiplanar multisequence MRI of the brain was performed both before and after the intravenous administration of contrast. COMPARISON STUDY: Head CTA 08/22/2018. FINDINGS: There is no mass, hematoma, midline shift, or acute infarct. The paranasal sinuses are clear. The mastoid air cells are clear. The ventricles and sulci demonstrate mild age-related involutional changes. Scattered foci of T2 hyperintensity seen within the periventricular and subcortical white matter are nonspecific but suggestive of mild microvascular ischemic changes. The major vascular flow voids at the skull base are well-maintained. No abnormal enhancement. Within the left skull base anterior to the pontine/medullary junction there is an irregular 5 mm T2 hypointense, T1 isointense extra-axial lesion. This does not demonstrate significant enhancement. There is no mass effect along the adjacent vascular structures. This is indeterminate but could represent a small meningioma. This is best seen on the FIESTA sequences image 37 of 92. IMPRESSION: 1. No acute intracranial abnormality. 2. Scattered foci of T2 hyperintensity seen within the periventricular and subcortical white matter are nonspecific but favor microvascular ischemic change. 3. Within the left skull base anterior to the pontine/medullary junction there is an irregular 5 mm T2 hypointense, T1 isointense extra-axial lesion. This does not demonstrate significant enhancement. There is no mass effect along the adjacent vascular structures. This is indeterminate but could represent a small meningioma. Follow-up MRI in one year is recommended to ensure stability. Electronically signed by: Galindo Kline M.D. 08/23/2018 10:59 AM Dictated: 08/23/18 1050 Transcribed: 08/23/[address] ANGIOGRAPHY OF THE NECK WITH CONTRAST CLINICAL HISTORY: Fall. COMPARISON STUDY: None. Technique: CT angiography of the carotid and vertebral arteries was obtained using Optiray 320 IV and 3D reconstruction on an independent workstation. NASCET criteria was utilized. Automated exposure control was utilized for the study. A dose lowering technique was utilized adhering to the principles of ALARA. Findings: Lung apices are clear. There is no cervical lymphadenopathy. There is no cervical spine fracture. No dissection is noted within the major vessels of the neck. There is mild atherosclerotic plaque within the major vessels of the neck. There is no stenosis within the bilateral common carotid and internal carotid arteries. The origin of the left vertebral artery is suboptimally assessed on this exam but there is no evidence for a severe stenosis. There is moderate to severe stenosis of the proximal intracranial portion of the left vertebral artery IMPRESSION: 1. No dissection or stenosis within the major vessels of the neck. Mild atherosclerotic plaque. 2. 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 Electronically signed by: Ganga Adams M.D. 08/22/2018 5:29 PM Dictated: 08/22/181720 Transcribed: 08/22/181720 CTA ANGIOGRAPHY OF THE HEAD CLINICAL HISTORY: Fall. COMPARISON STUDY: Head CT performed earlier today. TECHNIQUE: Helical axial images of the head were obtained following uneventful intravenous administration of 120 cc of Optiray 320. Automated exposure control was utilized for the study. A dose lowering technique was utilized adhering to the principles of ALARA. CT DOSE: 620.33 mGy.cm FINDINGS: There is moderate to severe stenosis within the proximal intracranial portion of the left vertebral artery. persistence of the right posterior cerebral artery is noted. There is moderate calcified plaque within the bilateral cavernous carotids with minimal stenosis of the left cavernous carotid. There is no intracranial aneurysm or dissection. No abrupt vessel cut off is identified. No acute intracranial hemorrhage, midline shift or mass effect is present. No calvarial fracture is identified. IMPRESSION: 1. No abrupt vessel cut off, dissection or aneurysm within the intracranial circulation. 2. 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 3. Moderate calcified atherosclerotic plaque within the bilateral cavernous carotids with minimal narrowing of the left cavernous carotid. Electronically signed by: Ganga Adams M.D. 08/22/2018 5:33 PM Dictated: 08/22/181728 Transcribed: 08/22/181728 CT SCAN OF THE BRAIN WITHOUT IV CONTRAST CLINICAL HISTORY: Fall. Head injury. COMPARISON STUDY: No priors. TECHNIQUE: Unenhanced axial CT scan of the brain is performed from the vertex to the skull base. A dose lowering technique was utilized adhering to the principles of ALARA. CT DOSE: 611.78 mGycm FINDINGS: Brain parenchyma: The brain parenchyma is normal in appearance. There is no hemorrhage, mass effect, or evidence of acute territorial ischemia by CT criteria. Roque-white matter differentiation is preserved. No extra-axial fluid collection is seen. Ventricles, sulci, cisterns: Normal in configuration. Intracranial vasculature: There is atherosclerotic calcification of the cavernous carotid and vertebral arteries. Calvarium: There is no depressed calvarial fracture. Sinuses and mastoids: The visualized paranasal sinuses are clear. The mastoid air cells are well pneumatized. Orbits: The bony orbits are grossly intact. There are bilateral ocular lens implants. IMPRESSION: There is no hemorrhage, mass effect, or evidence of acute territorial ischemia by CT criteria. Electronically signed by: Luis Felipe Kulkarni M.D. 08/22/2018 2:45 PM Dictated: 08/22/18 1443 Transcribed: 08/22/18 1443 SINGLE VIEW CHEST CLINICAL HISTORY: Generalized weakness. FINDINGS: An AP, portable, upright chest radiograph is compared to study 2014. The cardiomediastinal silhouette is unremarkable. The lungs and pleural spaces are clear. No pneumothorax is seen. The bony thorax is grossly intact. IMPRESSION: No active disease in the chest. Electronically signed by: Luis Felipe Kulkarni M.D. 08/22/2018 2:34 PM Dictated: 08/22/18 1434 Transcribed: 08/22/[address] SCAN OF THE CERVICAL SPINE CLINICAL HISTORY: Fall. COMPARISON STUDY: No priors. TECHNIQUE: CT scan of the cervical spine is performed from the skull base to the upper thoracic spine. Images are reviewed in the axial, sagittal, and coronal planes. IV contrast was not administered for this examination. A dose lowering technique was utilized adhering to the principles of ALARA. CT DOSE: 406.99 mGycm FINDINGS: Skeletal structures: The skeletal structures are osteopenic. There is no evidence of fracture or subluxation involving the cervical spine. Vertebral body height and alignment are maintained. The odontoid process and lateral masses are intact. The atlantoaxial articulation is preserved noting mild productive degenerative change. The spinous processes appear intact. Intervertebral discs: The disc spaces are well maintained. Central canal: Widely patent. Soft tissues: The prevertebral and paraspinous soft tissues are within normal limits. There is atherosclerotic calcification of the carotid bulbs. Calvarium: The visualized calvarium at the skull base appears intact. Brain parenchyma: Partially visualized brain parenchyma the skull base is within normal limits. Sinuses and mastoids: The visualized paranasal sinuses are clear. The mastoid air cells are well pneumatized. Lung apices: Clear as visualized. IMPRESSION: There is no evidence of fracture or subluxation involving the cervical spine. Electronically signed by: Luis Felipe Kulkarni M.D. 08/22/2018 2:54 PM Dictated: 08/22/18 145 Transcribed: 08/22/18 1451 Hospital Course (1) Vertigo: Mechanical Fall Due to recent head traumatic head injury from the fall CT head showed no intracranial abnormality CTA head and neck showed moderate to severe stenosis of the proximal intracranial portion of the left vertebral artery. MRI brain showed no acute intracranial abnormality. Physical therapy will try the kelley maneuver case discussed with neuro Follow up with neurology as an outpatient Fall precaution (2) Diabetes mellitus type 2 in nonobese: Most recent Hba1c 6.8 on 05/21 Hold metformin Continue monitor BS Ok to resume metformin after 48 hrs due to the constrast (3) CAD (coronary artery disease): Denies any chest pain Continue plavix, aspirin, atenolol and statin (4) Dyslipidemia: On Statin (5) Hypothyroid: TSH is low Will decrease levotyroxine to 100mcg Check TSH in 4 to 6 weeks Headache Due to head traumatic injury Improves Small meningioma Incidental finding on MRI head. Will need repeat MRI in 1 year. Follow up with neurology DVT px on lovenox subq CODE status Full code Disposition Will discharge home today Total Time Total Time Spent Total Time Spent (In Minutes): 35 minutes Total Time Includes: Examination of the Patient, Discharge Planning, Medication Reconciliation, Communication With Other Providers and Other Discharge Plan Discharge Items Patient Disposition: Home - Self-Care Reason For Visit: DIZZINESS Discharge Diagnosis: Vertigo/ small meningioma/ Headache Condition: Good Discharge Goals: Decrease discomfort, Diagnostic testing, Improve disease control and Increase independence Activity: Resume your previous activity Activity Comment: as tolerated Non-emergency contact: Primary Care Provider and Neurologist Call non-emergency contact if: you have any medication questions and your symptoms worsen Diet: Carb Consistent or DM2 Addtl Provider Instructions: Follow up with your primary care provider Dr. Ryan (Office will call you for the appointment) Follow up with neurology Dr. Goodwin in 4 to 6 weeks (Office will call you for the appointment) Hold meformin for now due to the contrast. OK to resume it on Friday Levothyroxine decreased to 100mcg due to low TSH Check TSH between 4 to 6 weeks Increase your activity as tolerated Fall precaution You will need a repeat MRI head in 1 year for follow up of possible small meningioma Prescriptions: New levothyroxine 100 mcg capsule 100 mcg PO DAILY Qty: 30 RF: 0 Continue multivitamin Tablet 1 tab PO QPM RF: 0 amoxicillin 500 mg Capsule 500 mg PO BID RF: 0 atorvastatin 80 mg Tablet 80 mg PO QAM RF: 0 isosorbide mononitrate 30 mg Tablet Extended Release 24 Hr 30 mg PO QAM RF: 0 atenolol 25 mg Tablet 25 mg PO HS RF: 0 bimatoprost 0.03 % Drops 1 drp OPHTHALMIC (EYE) DIRECTED RF: 0 clopidogrel 75 mg Tablet 75 mg PO QPM RF: 0 aspirin [Aspir-81] 81 mg Tablet,Delayed Release (Dr/Ec) 81 mg PO QPM RF: 0 ranitidine HCl [Zantac] 150 mg Tablet 150 mg PO BID RF: 0 niacin 500 mg Capsule, Extended Release 500 mg PO QPM RF: 0 metformin 500 mg Tablet Extended Release 24 Hr 500 mg PO BID RF: 0 ranolazine [Ranexa] 500 mg Tablet Extended Release 12 Hr 500 mg PO BID RF: 0 B12 1,000 mg 1 tab PO TID RF: 0 magnesium 400 mg 1 tab PO TID RF: 0 Discontinued levothyroxine 112 mcg Tablet 112 mcg PO DAILYBB RF: 0 Stand-Alone Forms: [facility] Discharge Orders: Discharge Order (Routine); Ordered 08/23/18 Ordered By: Arabella Ruiz Admission Data Admit Date/Time: 08/22/18 19:29 Attending Provider: Arabella Ruiz Admit Provider: Arabella Ruiz Primary Care Provider: London Ryan Other Providers: Arabella Ruiz ; Jodi Reveles Service: Telemetry Medical Other Interventions: Discharge Summary Assessment (RN) Last Done: 08/23/18 15:35 DC Date/Time DO NOT enter until pt leaves facility: 08/23/18 16:09
--- NOTE | 2018-09-14 09:29 | Coding Query ---
A supporting diagnosis is required for the test/procedure performed on this patient in order for us to be reimbursed by the patient's insurance. Please provide a supporting diagnosis for the following test/procedure listed below next to the test name along with your signature. *If there is no additional diagnosis for this patient that would support the following test/procedure please document that below next to the test/procedure. Test(s)/Procedure(s) that require a supporting diagnosis: * [address]015 CANALITH REPOSITION PROC x2 DIAGNOSIS: DATE OF SERVICE: 08/23/18 Provider Signature: Date: Thank you London Bonds [facility] Information Management Once completed, please kindly fax back to [phone] For questions please call [phone] [facility]
== END 2018-08-23 16:09 | disposition home or self-care (01) ==
LOC: ED 13:38 → 2N 13:38

== ENCOUNTER 2020-10-28 10:41 | Inpatient (IN) ==
--- NOTE | 2020-10-28 11:01 | Emergency Department Note ---
Impression & Plan Stroke-like symptoms, Right sided weakness, Imbalance, Brain TIA ED Provider Note NAME: KASSIE JOSHI AGE: 70 SEX: M : 1950 ARRIVES VIA: Walk-In INFORMANT: Patient ED PROVIDER(S): Raudel Wise DO CHIEF COMPLAINT: RLE weakness HPI: Patient is a 70-year-old male who presents to the ER for weakness of the right lower extremity. He was standing in the kitchen around 1015 when this occurred. He normally has left-sided weakness which they are unsure of what the cause of this was. He has previous nerve injury in his left upper extremity. Patient denies any headache or change in vision. No chest pain or shortness of breath. He has some paresthesias in the right side of his face. No dysuria, urgency or frequency. No other exacerbating or remitting factors. 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 ROS: See above HPI for pertinent positives & negatives. A total of 10 systems reviewed and were otherwise negative. PAST MEDICAL HISTORY:See Below PAST SURGICAL HISTORY:See Below FAMILY HISTORY:See Below SOCIAL HISTORY:See Below HOME MEDICATIONS:See Below ALLERGIES:See Below VITALS:See Below PHYSICAL EXAMINATION: GENERAL: Sitting up in bed, alert, well appearing, well nourished, no distress, non-toxic EYE EXAM: normal conjunctiva. PERRL and EOM's intact. OROPHARYNX: no exudate, no erythema, lips, buccal mucosa, and tongue normal and mucous membranes are moist NECK: supple, no nuchal rigidity, no adenopathy, non-tender LUNGS: Clear to auscultation. Normal chest wall mechanics HEART: no murmurs, S1 normal and S2 normal ABDOMEN: abdomen soft, non-tender, normo-active bowel sounds, no masses, no rebound or guarding. UPPER EXTREMITIES: upper extremities are grossly normal. LOWER EXTREMITIES: No pitting edema. NEURO EXAM: Normal sensorium, cranial nerves II-XII intact, normal speech, no weakness of arms, no weakness of legs. No drift. Finger to nose intact. Gross sensation intact. Bcti-[id number] intact. MEDICAL DECISION MAKING: Patient is a 70-year-old male who presents the ER for weakness of his right lower extremity which occurred around 10-10:15. He already takes aspirin and Plavix. Upon evaluation there is no focal deficit. Not a TPA candidate due to lack of deficits. IV was established blood work was obtained. Labs showed no significant leukocytosis or anemia. INR was unremarkable. BMP with LFTs b ilirubin and troponin was unremarkable. Covid was negative. Stroke alert was called. He was evaluated by telestroke neurology. They agree that he is likely not a TPA candidate. Recommended admission as well as MRI of the brain cervical and thoracic spine. Discussed with the hospitalist for further evaluation. Triage Nursing notes reviewed. Limited review of prior medical records performed Vital Signs: reviewed and remarkable for no significant abnormalities Differential diagnosis: Differential Diagnosis includes but is not limited to ischemic Stroke, hemorrhagic stroke, bells palsy, mass, neoplasm, migraine headache, seizure, subarachnoid hemorrhage, TIA, and transient global amnesia. ER treatment provided: See below Diagnostics interpreted by me: ECG: n sinus rhythm rate of 59 Left axis T wave inversion in the high lateral leads QTC 443 Cardiac Monitoring: An order was placed for continuous cardiac monitoring. The monitor shows a rate of 62 with sinus rhythm. Laboratory studies: As stated above and show below. Imaging studies: CT as well as angio of the head and neck showed no acute intracranial abnormalities Consultation(s): Discussed with Dr. Thomas from [facility]. They agree that this patient is likely not a TPA candidate. Discussed with Snehal from [facility] service patient was admitted for further work-up. Did discuss request of MRI brain, cervical and thoracic spine. Procedures: none Critical Care: None Past Med/Surg History Medical History (Updated 10/28/20 @ 14:29 by Raudel Wise DO) CAD (coronary artery disease) Cauda equina compression Chronic antibiotic suppression Concussion Diabetes mellitus type 2 in nonobese Dyslipidemia Head injury History of placement of stent in LAD coronary artery Hypothyroid Lumbar degenerative disc disease Neuropathy of left lower extremity Rheumatic heart disease VBI (vertebrobasilar insufficiency) Vertigo Surgical History (Updated 10/28/20 @ 13:36 by Kait Osmna PA-C) H/O Achilles tendon repair H/O sinus surgery History of cataract surgery History of tonsillectomy Hx of laminectomy Family History (Updated 10/28/20 @ 13:37 by Kait Osman PA-C) Father Diabetes Heart disease Stroke Multiple Dementia Vascular Dyslipidemia Hypertension Mother Hypertension Dyslipidemia Diabetes Social History Smoking Status: Never smoker Hx Alcohol Use: No Hx Substance Use: No Preferred Language: Telugu Communication Ability: Effective Application Development Specialist Required: No Beliefs That Will Affect Care: None Current Living Situation: Spouse Other Information That Helps Us Care for You: No Feels Safe at Home: Yes Safety Concerns: Feels Safe At This Time Assistive Devices: Glasses Allergies Allergies Allergy/AdvReac Type Severity Reaction Status Date / Time tamsulosin Allergy Intermediate INCREASED Verified 08/22/18 14:57 B/P, [place], DECREASED URINE OUTPUT Home Meds Home Medications Medication Instructions Recorded Confirmed B12 1 tab PO BID 08/22/18 10/28/20 amoxicillin 500 mg PO BID 08/22/18 10/28/20 atenolol 25 mg PO HS 08/22/18 10/28/20 atorvastatin 80 mg PO QAM 08/22/18 10/28/20 clopidogrel 75 mg PO QPM 08/22/18 10/28/20 isosorbide mononitrate 30 mg PO QAM 08/22/18 10/28/20 metformin 500 mg PO BID 08/22/18 10/28/20 multivitamin 1 tab PO QPM 08/22/18 10/28/20 niacin 500 mg PO QPM 08/22/18 10/28/20 ranolazine [Ranexa] 500 mg PO BID 08/22/18 10/28/20 ascorbic acid (vitamin C) [Vitamin 250 mg PO DAILY 10/28/20 10/28/20 C] aspirin [Aspirin Low-Strength] 81 mg PO HS 10/28/20 10/28/20 folic acid 0.4 mg PO BID 10/28/20 10/28/20 latanoprostene bunod [Vyzulta] 1 drp OPHTHALMIC (EYE) 10/28/20 10/28/20 levothyroxine 88 mcg PO DAILY 10/28/20 10/28/20 magnesium oxide 400 mg PO BID 10/28/20 10/28/20 omeprazole 20 mg PO DAILY 10/28/20 10/28/20 Results & Data (ED) Vital Signs Vital Signs - 24 hr 10/28/20 10:52 10/28/20 10:53 10/28/20 10:55 Temperature 36.8 C Temperature Source Oral Pulse Rate 63 64 71 Pulse Rate from SpO2 Sensor Respiratory Rate 21 20 15 Respiratory Effort / Characteristics Non-Labored Spontaneous Respiratory Depth Normal Respiratory Pattern Regular Blood Pressure 139/74 139/74 Blood Pressure Mean 95 95 Pulse Oximetry 100 Oxygen Delivery Method Room Air Sepsis Recent Fever Within 48 Hours No Sepsis New/Unexplained Change in Mental Status N/A Sepsis Action Taken by Nursing No Action Required 10/28/20 11:11 10/28/20 11:12 10/28/20 11:15 Temperature Temperature Source Pulse Rate 62 62 60 Pulse Rate from SpO2 Sensor 60 Respiratory Rate 12 14 8 L Respiratory Effort / Characteristics Respiratory Depth Respiratory Pattern Blood Pressure 113/64 Blood Pressure Mean 80 Pulse Oximetry 99 Oxygen Delivery Method Sepsis Recent Fever Within 48 Hours Sepsis New/Unexplained Change in Mental Status Sepsis Action Taken by Nursing 10/28/20 11:30 10/28/20 11:31 10/28/20 11:45 Temperature Temperature Source Pulse Rate 57 L 58 L 63 Pulse Rate from SpO2 Sensor 57 L 58 L Respiratory Rate 20 20 11 L Respiratory Effort / Characteristics Respiratory Depth Respiratory Pattern Blood Pressure 133/67 172/91 H Blood Pressure Mean 89 118 Pulse Oximetry 100 100 Oxygen Delivery Method Sepsis Recent Fever Within 48 Hours Sepsis New/Unexplained Change in Mental Status Sepsis Action Taken by Nursing 10/28/20 12:00 10/28/20 12:01 Temperature Temperature Source Pulse Rate 51 L 52 L Pulse Rate from SpO2 Sensor 52 L Respiratory Rate 13 14 Respiratory Effort / Characteristics Respiratory Depth Respiratory Pattern Blood Pressure 125/73 Blood Pressure Mean 90 Pulse Oximetry 100 Oxygen Delivery Method Sepsis Recent Fever Within 48 Hours Sepsis New/Unexplained Change in Mental Status Sepsis Action Taken by Nursing Laboratory Data Result diagrams: 10/28/20 10:57 10/28/20 10:57 Lab Results 10/28/20 10/28/20 10/28/20 Range/Units 10:57 10:57 10:57 WBC 6.96 (4.8-10.8) K/uL RBC 4.35 L (4.7-6.1) M/uL Hgb 13.5 L (14.0-18.0) g/dL Hct 38.1 L (42-52) % MCV 87.6 (80-100) fL MCH 31.0 (25-34) pg MCHC 35.4 (32-36) g/dL RDW Std Deviation 38.8 (36.4-46.3) fL RDW Coeff of Olaf 12.1 (11.5-14.5) % Plt Count 235 (130-400) K/uL MPV 8.8 (7.4-10.4) fL Immature Gran % (Auto) 0.1 % Neut % (Auto) 60.0 % Lymph % (Auto) 22.8 % [place]borne % (Auto) 8.6 % Eos % (Auto) 8.2 % Baso % (Auto) 0.3 % Neut # (Auto) 4.17 (1.4-6.5) K/uL Lymph # (Auto) 1.59 (1.2-3.4) K/uL [place]borne # (Auto) 0.60 H (0.11-0.59) K/uL Eos # (Auto) 0.57 H (0-0.5) K/uL Baso # (Auto) 0.02 (0-0.2) K/uL Immature Gran # (Auto) 0.01 (0.00-0.02) K/uL PT 11.6 (9.0-12.0) Seconds INR 1.2 H (0.9-1.1) APTT 25.1 (21.0-31.0) Seconds PTT Ratio 1.0 Sodium 139 (136-145) mmol/L Potassium 4.0 (3.5-5.1) mmol/L Chloride 107 (98-107) mmol/L Carbon Dioxide 27 (21-32) mmol/L Anion Gap 5.0 (3-11) BUN 14 (7-18) mg/dl Creatinine 1.22 (0.6-1.4) mg/dl Est Cr Clr Drug Dosing 56.3 ml/min Est GFR ( Amer) 69.2 Est GFR (Non-Af Amer) 59.7 BUN/Creatinine Ratio 11.5 (10-20) Glucose 133 H (70-99) mg/dl Calcium 9.3 (8.5-10.1) mg/dl Magnesium 1.8 (1.8-2.4) mg/dl Total Bilirubin 0.7 (0.2-1) mg/dl AST 21 (15-37) U/L ALT 31 (12-78) U/L Alkaline Phosphatase 126 H (45-117) U/L Troponin I < 0.015 (0-0.045) ng/ml Total Protein 7.6 (6.4-8.2) gm/dl Albumin 3.9 (3.4-5.0) gm/dl Globulin 3.7 (2.5-4.0) gm/dl Albumin/Globulin Ratio 1.1 (0.9-2) Administered Medications Discontinued Medications Ioversol (Optiray 320 125ml) 118 ml IV ONCE ONE Stop: 10/28/20 11:03 Last Admin: 10/28/20 11:03 Dose: 118 ml Documented by: [id number] Discharge Plan Visit Data Chief Complaint: Stroke/CVA Symptoms Stated Complaint: STROKE SYMPTOMS ED Provider: Raudel Wise Discharge Problem: Stroke-like symptoms, Right sided weakness, Imbalance, Brain TIA Patient Disposition: Admitted As Inpatient Discharge Instructions Interventions: ED Discharge Assessment Last Done: 10/28/20 13:30
[2020-10-28] MEDS ORDERED: OPTIRAY 320 125ml IV ONE (11:02)
[2020-10-28 11:13] LABS: Basophils # (auto) 0.02 K/uL (0-0.2); Basophils % (auto) 0.3 %; Eosinophils # (auto) 0.57 K/uL (0-0.5); Eosinophils % (auto) 8.2 %; Hematocrit (blood only) 38.1 % (42-52); Hemoglobin 13.5 g/dL (14.0-18.0); Immature Granulocytes # (auto) 0.01 K/uL (0.00-0.02); Immature Granulocytes % (auto) 0.1 %; Lymphocytes # (auto) 1.59 K/uL (1.2-3.4); Lymphocytes % (auto) 22.8 %; Mean Corpuscular Hgb Conc 35.4 g/dL (32-36); Mean Corpuscular Volume 87.6 fL (80-100); Mean Platelet Volume 8.8 fL (7.4-10.4); Monocytes % (auto) 8.6 %; Neutrophils # (auto) 4.17 K/uL (1.4-6.5); Platelet Count 235 K/uL (130-400); RDW Coefficient of Variation 12.1 % (11.5-14.5); RDW Standard Deviation 38.8 fL (36.4-46.3); Red Blood Count 4.35 M/uL (4.7-6.1); White Blood Count 6.96 K/uL (4.8-10.8)
--- NOTE | 2020-10-28 11:20 | CT Scan Report ---
NONCONTRAST HEAD CT, HEAD & NECK CTA HISTORY: Stroke Like Symptoms TECHNIQUE: Multiaxial CT images of the head were performed both before and after the intravenous admi nistration of contrast to evaluate the major cerebral vessels. Multiaxial CT images of the neck were also performed following the intravenous administration of contrast to evaluate the major cervical ve ssels. Maximum intensity projection images were also obtained. A dose lowering technique was utilized adhering to the principles of ALARA. COMPARISON: Head and neck CTA 08/22/2018. FINDINGS: There is no mass, hematoma, midline shift, or acute infarct. The basilar artery is widely patent. The re is no significant stenosis, occlusion, or aneurysm seen within the bilateral ACAs, MCAs, or fac engineer. Calcified plaque within the bilateral carotid siphons resulting in mild stenosis on the left. The raul or dural venous sinuses appear patent. Focal severe stenosis within the intracranial portion of the l eft vertebral artery. This remains unchanged. There is a persistent right circulation. The aortic arch and proximal great vessels are widely patent. There is no significant stenosis, occ lusion, or dissection identified within the bilateral common carotid, internal carotid, or vertebral arteries. I plaque within the bilateral carotid bifurcations. IMPRESSION: 1. No significant stenosis, occlusion, or aneurysm within the [place]. 2. No significant stenosis, occlusion, or dissection identified within the carotid arteries. 3. No change in the focal severe stenosis within the intracranial portion of the left vertebral arter y. Therefore. No acute intracranial abnormality. ACT 112: Negative or not required by law. Electronically signed by: Galindo Kline M.D. 10/28/2020 11:19 AM
--- NOTE | 2020-10-28 11:20 | CT Scan Report ---
NONCONTRAST HEAD CT, HEAD & NECK CTA HISTORY: Stroke Like Symptoms TECHNIQUE: Multiaxial CT images of the head were performed both before and after the intravenous admi nistration of contrast to evaluate the major cerebral vessels. Multiaxial CT images of the neck were also performed following the intravenous administration of contrast to evaluate the major cervical ve ssels. Maximum intensity projection images were also obtained. A dose lowering technique was utilized adhering to the principles of ALARA. COMPARISON: Head and neck CTA 08/22/2018. FINDINGS: There is no mass, hematoma, midline shift, or acute infarct. The basilar artery is widely patent. The re is no significant stenosis, occlusion, or aneurysm seen within the bilateral ACAs, MCAs, or motor vehicle light assembler. Calcified plaque within the bilateral carotid siphons resulting in mild stenosis on the left. The raul or dural venous sinuses appear patent. Focal severe stenosis within the intracranial portion of the l eft vertebral artery. This remains unchanged. There is a persistent right circulation. The aortic arch and proximal great vessels are widely patent. There is no significant stenosis, occ lusion, or dissection identified within the bilateral common carotid, internal carotid, or vertebral arteries. I plaque within the bilateral carotid bifurcations. IMPRESSION: 1. No significant stenosis, occlusion, or aneurysm within the [place]. 2. No significant stenosis, occlusion, or dissection identified within the carotid arteries. 3. No change in the focal severe stenosis within the intracranial portion of the left vertebral arter y. Therefore. No acute intracranial abnormality. ACT 112: Negative or not required by law. Electronically signed by: Galindo Kline M.D. 10/28/2020 11:19 AM
--- NOTE | 2020-10-28 11:20 | CT Scan Report ---
NONCONTRAST HEAD CT, HEAD & NECK CTA HISTORY: Stroke Like Symptoms TECHNIQUE: Multiaxial CT images of the head were performed both before and after the intravenous admi nistration of contrast to evaluate the major cerebral vessels. Multiaxial CT images of the neck were also performed following the intravenous administration of contrast to evaluate the major cervical ve ssels. Maximum intensity projection images were also obtained. A dose lowering technique was utilized adhering to the principles of ALARA. COMPARISON: Head and neck CTA 08/22/2018. FINDINGS: There is no mass, hematoma, midline shift, or acute infarct. The basilar artery is widely patent. The re is no significant stenosis, occlusion, or aneurysm seen within the bilateral ACAs, MCAs, or glass mold repairer. Calcified plaque within the bilateral carotid siphons resulting in mild stenosis on the left. The raul or dural venous sinuses appear patent. Focal severe stenosis within the intracranial portion of the l eft vertebral artery. This remains unchanged. There is a persistent right circulation. The aortic arch and proximal great vessels are widely patent. There is no significant stenosis, occ lusion, or dissection identified within the bilateral common carotid, internal carotid, or vertebral arteries. I plaque within the bilateral carotid bifurcations. IMPRESSION: 1. No significant stenosis, occlusion, or aneurysm within the [place]. 2. No significant stenosis, occlusion, or dissection identified within the carotid arteries. 3. No change in the focal severe stenosis within the intracranial portion of the left vertebral arter y. Therefore. No acute intracranial abnormality. ACT 112: Negative or not required by law. Electronically signed by: Galindo Kline M.D. 10/28/2020 11:19 AM
--- NOTE | 2020-10-28 11:23 | XRay Report ---
XR chest 1V portable HISTORY: Stroke Like Symptoms COMPARISON: Chest 08/22/2018. FINDINGS: The lungs are clear. Cardiac silhouette is normal in size. No pleural effusions. No pneumot horax. IMPRESSION: No acute process. ACT 112: Negative or not required by law. Electronically signed by: Galindo Kline M.D. 10/28/2020 11:22 AM
[2020-10-28 11:27] LABS: INR 1.2 (0.9-1.1); Partial Thromboplastin Time 25.1 Seconds (21.0-31.0); Prothrombin Time 11.6 Seconds (9.0-12.0)
[2020-10-28 11:32] LABS: Alanine Aminotransferase 31 U/L (12-78); Albumin Level 3.9 gm/dl (3.4-5.0); Aspartate Aminotransferase 21 U/L (15-37); BUN Creatinine Ratio 11.5 (10-20); Blood Urea Nitrogen 14 mg/dl (7-18); Calcium 9.3 mg/dl (8.5-10.1); Carbon Dioxide 27 mmol/L (21-32); Chloride 107 mmol/L (98-107); Creatinine Clr Calc Pharmacy 56.3 ml/min; Est GFR (African American) 69.2; Est GFR (Non-African American) 59.7; Glucose 133 mg/dl (70-99); Magnesium 1.8 mg/dl (1.8-2.4); Sodium 139 mmol/L (136-145)
[2020-10-28 11:37] LABS: Albumin Globulin Ratio 1.1 (0.9-2); Alkaline Phosphatase 126 U/L (45-117); Bilirubin,Total 0.7 mg/dl (0.2-1); Globulin 3.7 gm/dl (2.5-4.0); Total Protein 7.6 gm/dl (6.4-8.2); Troponin I < 0.015 ng/ml (0-0.045)
--- NOTE | 2020-10-28 12:55 | History & Physical Report ---
Date of Service October 28, 2020 Assessment & Plan (1) Stroke-like symptoms: (2) Right sided weakness: (3) Imbalance: Patient presented to the ED with complaint of stroke- like symptoms with RUE & RLE weakness and paresthesia of the right face. Symptoms have persisted subjectively per the patient but are improve. Admit to telemetry for continued monitoring. Imaging so far negative. Telestroke was contacted by the ED physician. Telestroke recommend MRI of the brain, C spine, and T spine for further evaluation. Orders placed. Patient is on daily ASA 81 mg, plavix. Continue Neurology consulted- Dr. Reveles aware. Stroke protocols Fall precautions. PT/OT Speech eval. Then advance diet as tolerated AM Labs- CBC, BMP, Lipids, A1C Check Lyme (4) CAD (coronary artery disease): (5) Dyslipidemia: Continue ASA, plavix, and Atorvastatin 80 mg (6) Diabetes mellitus type 2 in nonobese: Hold Metformin. Insulin protocol while inpatient NPO until evaluated by speech. Then DM Diet (7) Lumbar degenerative disc disease: (8) Neuropathy of left lower extremity: Chronic lower back problems possibly cause of LLE neuropathy. Follows with Neuro outpatient. No changes at this time (9) Rheumatic heart disease: (10) Chronic antibiotic suppression: Continue amoxicillin 500 mg BID for chronic suppressive therapy Hypothyroidism - cont. home levothyroxine - check TSH (11) DVT prophylaxis: Lovenox History of Present Illness Chief Complaint: CVA symptoms Primary Care Provider: London Ryan MD Patient is a 70 yo male with history of CAD w/hx of LAD stenting, Rheumatic heart disease on chronic abx, DM, cauda equina syndrome s/p lumbar laminectomy, dyslipidemia and hypothyroidism who presented to the ED for stroke-like symptoms. Around 10:15 AM this morning, the patient noted that his right leg felt heavy. He also noted that he seemed off balance. He typically has left lower extremity weakness for unknown reason, ? DM neuropathy, but his right side felt weaker this morning. He tried to do a squat and noted that it "didn't feel right". He then noted that his RUE was slightly weak as well and he was having right facial paresthesia/numbness. His daughter, a medical provider was with him and did an exam at that time. She noted some mild weakness subjectively of the RUE and RLE compared to the LLE and LUE. No facial droop or speech deficit. Of note, the patient did have a Pfizer COVID-19 vaccine last 10/21/20. He had mild headache on / that subsided. He does follow with Dr. Reveles for outpatient neurology with history history of neuropathy. Since presentation, he has had CT Head, CTA Head & Neck which were unremarkable. His symptoms are improved, but he still feels that his right upper and especially lower extremity feels 'off'. He has had no swallowing or speech difficulty. Lab evaluation revealed mild anemia with Hgb 13.5, within normal electrolytes other than mildly elevated glucose of 133. Troponin was negative. LFTs were within norm other than slightly elevated Alk Phos of 126. No other associated symptoms. He has been feeling well otherwise recently. Allergies Allergy/AdvReac Type Severity Reaction Status Date / Time tamsulosin Allergy Intermediate INCREASED Verified 08/22/18 14:57 B/P, [place], DECREASED URINE OUTPUT Home Medications Medication Instructions Recorded Confirmed Type B12 1 tab PO BID 08/22/18 10/28/20 History amoxicillin 500 mg PO BID 08/22/18 10/28/20 History atenolol 25 mg PO HS 08/22/18 10/28/20 History atorvastatin 80 mg PO QAM 08/22/18 10/28/20 History clopidogrel 75 mg PO QPM 08/22/18 10/28/20 History isosorbide mononitrate 30 mg PO QAM 08/22/18 10/28/20 History metformin 500 mg PO BID 08/22/18 10/28/20 History multivitamin 1 tab PO QPM 08/22/18 10/28/20 History niacin 500 mg PO QPM 08/22/18 10/28/20 History ranolazine [Ranexa] 500 mg PO BID 08/22/18 10/28/20 History ascorbic acid (vitamin C) [Vitamin 250 mg PO DAILY 10/28/20 10/28/20 History C] aspirin [Aspirin Low-Strength] 81 mg PO HS 10/28/20 10/28/20 History folic acid 0.4 mg PO BID 10/28/20 10/28/20 History latanoprostene bunod [Vyzulta] 1 drp OPHTHALMIC (EYE) HS 10/28/20 10/28/20 History levothyroxine 88 mcg PO DAILY 10/28/20 10/28/20 History magnesium oxide 400 mg PO BID 10/28/20 10/28/20 History omeprazole 20 mg PO DAILY 10/28/20 10/28/20 History Past Med/Surg History Medical History (Updated 10/28/20 @ 14:29 by Raudel Wise DO) CAD (coronary artery disease) Cauda equina compression Chronic antibiotic suppression Concussion Diabetes mellitus type 2 in nonobese Dyslipidemia Head injury History of placement of stent in LAD coronary artery Hypothyroid Lumbar degenerative disc disease Neuropathy of left lower extremity Rheumatic heart disease VBI (vertebrobasilar insufficiency) Vertigo Surgical History (Updated 10/28/20 @ 13:36 by Kait Osman PA-C) H/O Achilles tendon repair H/O sinus surgery History of cataract surgery History of tonsillectomy Hx of laminectomy Family History (Updated 10/28/20 @ 13:37 by Kait Osman PA-C) Father Diabetes Heart disease Stroke Multiple Dementia Vascular Dyslipidemia Hypertension Mother Hypertension Dyslipidemia Diabetes Social History Smoking Status: Never smoker Hx Alcohol Use: No Hx Substance Use: No Preferred Language: Estonian Communication Ability: Effective Automotive General Manager Required: No Beliefs That Will Affect Care: None Current Living Situation: Spouse Other Information That Helps Us Care for You: No Feels Safe at Home: Yes Safety Concerns: Feels Safe At This Time Assistive Devices: Glasses Review of Systems Review of Systems: All systems reviewed & are unremarkable except as noted in HPI & below Physical Exam Constitutional: WD/WN, vitals as above Eyes: PERRL, conjunctivae normal, anicteric sclerae ENMT: external ear and nose normal, oropharynx normal Neck: trachea midline, no thyromegaly Respiratory: normal respiratory effort, lungs clear to auscultation Cardiovascular: RRR, no murmur, no edema Gastrointestinal (Abdomen): normal bowel sounds, soft, nontender, no hepatosplenomegaly Musculoskeletal: no cyanosis or clubbing, extremities motor strength 5/5 Skin: no rashes, warm and dry Neurologic: PERRL, EOMI, accommodation nl, no face palsy, no dysarthria moves all extremities and awake; no focal motor deficits Motor/Sensory: no fasciculations Cranial Nerves: PERRL and EOM intact bilaterally Psychiatric: A+Ox3, euthymic affect Results & Data Results & Data ([facility]) Vital Signs (Past 12 Hours) Vital Signs Temp Pulse Resp BP Pulse Ox 10/28/20 12:01 52 L 14 100 10/28/20 12:00 51 L 13 125/73 10/28/20 11:45 63 11 L 172/91 H 10/28/20 11:31 58 L 20 100 10/28/20 11:30 57 L 20 133/67 100 10/28/20 11:15 60 8 L 99 10/28/20 11:12 62 14 113/64 10/28/20 11:11 62 12 10/28/20 10:55 71 15 10/28/20 10:53 36.8 C 64 20 139/74 100 10/28/20 10:52 63 21 139/74 Laboratory Results Laboratory Results - last 24 hr 10/28/20 10/28/20 10/28/20 10:57 10:57 10:57 WBC 6.96 RBC 4.35 L Hgb 13.5 L Hct 38.1 L MCV 87.6 MCH 31.0 MCHC 35.4 RDW Std Deviation 38.8 RDW Coeff of Olaf 12.1 Plt Count 235 MPV 8.8 Immature Gran % (Auto) 0.1 Neut % (Auto) 60.0 Lymph % (Auto) 22.8 Wilkin % (Auto) 8.6 Eos % (Auto) 8.2 Baso % (Auto) 0.3 Neut # (Auto) 4.17 Lymph # (Auto) 1.59 Wilkin # (Auto) 0.60 H Eos # (Auto) 0.57 H Baso # (Auto) 0.02 Immature Gran # (Auto) 0.01 PT 11.6 INR 1.2 H APTT 25.1 PTT Ratio 1.0 Sodium 139 Potassium 4.0 Chloride 107 Carbon Dioxide 27 Anion Gap 5.0 BUN 14 Creatinine 1.22 Est Cr Clr Drug Dosing 56.3 Est GFR ( Amer) 69.2 Est GFR (Non-Af Amer) 59.7 BUN/Creatinine Ratio 11.5 Glucose 133 H Calcium 9.3 Magnesium 1.8 Total Bilirubin 0.7 AST 21 ALT 31 Alkaline Phosphatase 126 H Troponin I < 0.015 Total Protein 7.6 Albumin 3.9 Globulin 3.7 Albumin/Globulin Ratio 1.1 COVID-19 Eval Order SARS-CoV-2 (PCR) Influenza Type A (PCR) Influenza Type B (PCR) RSV (RT-PCR) 10/28/20 10/28/20 13:15 13:15 WBC RBC Hgb Hct MCV MCH MCHC RDW Std Deviation RDW Coeff of Olaf Plt Count MPV Immature Gran % (Auto) Neut % (Auto) Lymph % (Auto) Wilkin % (Auto) Eos % (Auto) Baso % (Auto) Neut # (Auto) Lymph # (Auto) Wilkin # (Auto) Eos # (Auto) Baso # (Auto) Immature Gran # (Auto) PT INR APTT PTT Ratio Sodium Potassium Chloride Carbon Dioxide Anion Gap BUN Creatinine Est Cr Clr Drug Dosing Est GFR ( Amer) Est GFR (Non-Af Amer) BUN/Creatinine Ratio Glucose Calcium Magnesium Total Bilirubin AST ALT Alkaline Phosphatase Troponin I Total Protein Albumin Globulin Albumin/Globulin Ratio COVID-19 Eval Order CovFluRsv at [facility] SARS-CoV-2 (PCR) Pending Influenza Type A (PCR) Pending Influenza Type B (PCR) Pending RSV (RT-PCR) Pending Diagnostic Findings CT/CTA HEAD & NECK: IMPRESSION: 1. No significant stenosis, occlusion, or aneurysm within the [place]. 2. No significant stenosis, occlusion, or dissection identified within the carotid arteries. 3. No change in the focal severe stenosis within the intracranial portion of the left vertebral artery. Therefore. No acute intracranial abnormality. CXR: IMPRESSION: No acute process. Code Status & VTE Plan VTE Prophylaxis Plan VTE Prophylaxis will be ordered: Yes Supervising Physician Co-Signing Physician Notes Pt seen and examined by me, care coordinated with Terrell Osman PA-C, pls refer to her note above for further detail. Pt is a 70 yo male with history of CAD w/hx of LAD stenting, Rheumatic heart disease on chronic abx, DM, cauda equina syndrome s/p lumbar laminectomy, dyslipidemia and hypothyroidism who presented to the ED for stroke-like symptoms. Around 10:15 AM, the pt noted that his right leg felt heavy/ weakness. He also noted that he seemed off balance. He typically has left LE weakness for unknown reason, ? DM neuropathy, but his right side felt weaker this morning. He then noted that his RUE was slightly weak as well and he was having right facial paresthesia/numbness. Underwent CT head, CTA head and neck in the ED which were unremarkable. Telemedicine w/ stroke was also done and further recommend MRI imaging. Currently pt is laying in bed, in NAD. He is alert and oriented and answering questions appropriately. Lungs are clear to auscultation, heart sounds regular, abdomen soft nontender, nondistended. No LE edema. Moves extremities w/o difficulty. No sensory loss noted. No focal weakness or deficit noted. Pt's gait was not assessed. There is no facial asymmetry, speech is fluent. Will cont. to closely monitor. Neurology contacted, plan for MRI per telestroke recommendations. Zara Harris MD
--- NOTE | 2020-10-28 13:27 | Electrocardiogram Report ---
Test Reason : Blood Pressure : / mmHG Vent. Rate : 059 BPM Atrial Rate : 059 BPM P-R Int : 206 ms QRS Dur : 090 ms QT Int : 448 ms P-R-T Axes : 061 -26 098 degrees QTc Int : 443 ms Poor data quality, interpretation may be adversely affected Sinus bradycardia U-waves present; r/o electrolyte imbalance Abnormal ECG When compared with ECG of 22-AUG-2018 14:23, No significant change was found Confirmed by Chavez Mancuso ([id number]) on 10/28/2020 1:26:46 PM Referred By: REFERRED SELF Confirmed By:Chavez Mancuso
[2020-10-28] MEDS ORDERED: ACETAMINOPHEN 325 MG TAB PO PRN (13:47)
[2020-10-28 14:07] LABS: Influenza A virus by PCR Negative (Neg); Influenza B virus by PCR Negative (Neg); RSV by PCR Negative (Neg); SARS CoV2 RNA(COVID-19) InHosp NEGATIVE (Negative)
[2020-10-28] MEDS ORDERED: PHARMACIST DISCHARGE MED REC CONSULT PRN (14:35)
[2020-10-28] MEDS ORDERED: GLUCAGON FOR INJ 1 MG VIAL IM PRN (15:00)
[2020-10-28] MEDS ORDERED: GLUCOSE 10 TABS/TUBE PO PRN (15:00)
[2020-10-28] MEDS ORDERED: CARBOHYDRATES FOR HYPOGLYCEMIA PO PRN (15:00)
[2020-10-28] MEDS ORDERED: DEXTROSE 50% 50 ML SYRINGE IV PRN (15:00)
[2020-10-28] MEDS ORDERED: GLUCOSE 40% GEL 15 GM TUBE PO PRN (15:00)
[2020-10-28 16:05] LABS: Lyme Ab IgG w/WB Rflx Negative (Negative); Lyme Ab IgM w/WB Rflx Negative (Negative)
--- NOTE | 2020-10-28 17:08 | Magnetic Resonance Report ---
Brain MRI WITHOUT CONTRAST HISTORY: Right lower extremity weakness. TECHNIQUE: Multiplanar multisequence MRI of the brain was performed without the use of contrast. COMPARISON STUDY: Brain MRI 08/23/2018. FINDINGS: There is no mass, hematoma, midline shift, or acute infarct. The paranasal sinuses are mariam r. The mastoid air cells are clear. The ventricles and sulci demonstrate mild age-related involutiona l changes. Scattered foci of T2 hyperintensity seen within the periventricular and subcortical white matter are nonspecific but suggestive of mild microvascular ischemic changes. The major vascular flow voids at the skull base are well-maintained. IMPRESSION: No acute intracranial abnormality. Scattered foci of T2 hyperintensity seen within the periventricula r and subcortical white matter are nonspecific but favor microvascular ischemic change. ACT 112: Negative or not required by law. Electronically signed by: Galindo Kline M.D. 10/28/2020 5:07 PM
[2020-10-28] MEDS: INSULIN ASPART 100 UNITS/ML 3 ML PEN SC SCH ×2 (17:11→22:26)
[2020-10-28] MEDS: ENOXAPARIN INJ 40 MG/0.4 ML SYR SQ SCH (17:11)
--- NOTE | 2020-10-28 20:05 | Magnetic Resonance Report ---
THORACIC SPINE MRI HISTORY: Right lower extremity weakness. Possible stroke. TECHNIQUE: Multiplanar multisequence MRI of the thoracic spine was performed without the use of contr ast. COMPARISON: None. FINDINGS: No fracture or subluxation. Normal marrow signal intensity seen throughout the visualized osseous str uctures. Paravertebral soft tissues are unremarkable. Mild diffuse disc space narrowing seen througho ut the thoracic spine. There are small endplate osteophytes within the mid to lower thoracic spine. T his consistent with degenerative change. No significant central canal or neural foraminal narrowing. The thoracic spinal cord is normal and course, caliber, and signal intensity. There are few small bro ad-based posterior disc bulges seen within the T7-T12 levels. These do not result in significant cent ral canal narrowing. IMPRESSION: 1. No fractures within the thoracic spine. 2. Mild degenerative disc disease within the thoracic spine. However, no significant central canal or neural foraminal narrowing. 3. Normal thoracic spinal cord. ACT 112: Negative or not required by law. Electronically signed by: Galindo Kline M.D. 10/28/2020 8:04 PM
--- NOTE | 2020-10-28 20:12 | Magnetic Resonance Report ---
CERVICAL SPINE MRI HISTORY: Right leg weakness. Stroke symptoms. TECHNIQUE: Multiplanar multisequence MRI of the cervical spine was performed without the use of contr ast. COMPARISON STUDY: None. FINDINGS: No fracture or subluxation. Prevertebral soft tissues and the C1-C2 interval are intact. Vi sualized posterior fossa is unremarkable. The cervical spinal cord is normal in course, caliber, and signal intensity. Diffuse disc desiccation. Disc heights are relatively preserved for age. There are mild facet degenerative changes throughout the cervical spine. C2-C3: No significant central canal or neural foraminal narrowing. C3-C4: No significant central canal narrowing. There is moderate left-sided neural foraminal narrowin g due to the uncovertebral and facet hypertrophy. C4-C5: Small broad-based posterior disc osteophyte complex resulting in mild central canal narrowing. There is moderate bilateral neural foraminal narrowing due to the uncovertebral and facet hypertroph y. C5-C6: Broad-based posterior disc osteophyte complex resulting in mild central canal narrowing and mo derate bilateral neural foraminal narrowing. C6-C7: Small broad-based posterior disc osteophyte complex resulting in mild central canal narrowing and moderate left-sided neural foraminal narrowing. There is no right-sided neural foraminal narrowin g. C7-T1: No significant central canal or neural foraminal narrowing. IMPRESSION: 1. No fractures within the cervical spine. 2. Normal cervical spinal cord. 3. Mild central canal narrowing and bilateral neural foraminal narrowing from C4 through C7 as descri bed above. ACT 112: Negative or not required by law. Electronically signed by: Galindo Kline M.D. 10/28/2020 8:11 PM
[2020-10-28] MEDS: MAGNESIUM OXIDE 400 MG TAB PO SCH (20:42)
[2020-10-28] MEDS: CYANOCOBALAMIN 500 MCG TABLET (VITAMIN B-12) PO SCH (20:42)
[2020-10-28] MEDS: AMOXICILLIN 500 MG CAP PO SCH (20:42)
[2020-10-28] MEDS: FOLIC ACID 400 MCG TAB PO SCH (20:42)
[2020-10-28] MEDS: RANOLAZINE 500 MG ER TAB PO SCH (20:42)
[2020-10-28] MEDS ORDERED: ASPIRIN 81 MG ECTAB PO SCH (21:00)
[2020-10-28] MEDS ORDERED: CLOPIDOGREL BISULFATE 75 MG TAB PO SCH (21:00)
[2020-10-28] MEDS ORDERED: ATENOLOL 25 MG TABLET PO SCH (21:00)
[2020-10-28] MEDS ORDERED: NIACIN EXTENDED REL 500 MG TABCR PO SCH (21:00)
[2020-10-28] MEDS ORDERED: metFORMIN HCL ER 500 MG TABCR PO SCH (21:00)
[2020-10-28] MEDS ORDERED: MULTIVITAMIN TAB PO SCH (21:00)
[2020-10-29] MEDS ORDERED: LEVOTHYROXINE SODIUM 88 MCG TABLET PO SCH (06:30)
[2020-10-29 06:33] LABS: Hematocrit (blood only) 34.6 % (42-52); Hemoglobin 12.7 g/dL (14.0-18.0); Mean Corpuscular Hemoglobin 31.8 pg (25-34); Mean Corpuscular Hgb Conc 36.7 g/dL (32-36); Mean Corpuscular Volume 86.5 fL (80-100); Mean Platelet Volume 9.1 fL (7.4-10.4); Platelet Count 219 K/uL (130-400); RDW Coefficient of Variation 12.1 % (11.5-14.5); RDW Standard Deviation 38.9 fL (36.4-46.3); White Blood Count 6.16 K/uL (4.8-10.8)
[2020-10-29 07:00] LABS: BUN Creatinine Ratio 16.8 (10-20); Calcium 8.9 mg/dl (8.5-10.1); Creatinine Clr Calc Pharmacy 58.4 ml/min; Est GFR (African American) 78.4; Est GFR (Non-African American) 67.7; Potassium 3.8 mmol/L (3.5-5.1)
[2020-10-29 07:11] LABS: Thyroid Stimulating Hormone 2.05 uIu/ml (0.300-4.500)
[2020-10-29] MEDS: AMOXICILLIN 500 MG CAP PO SCH (08:45)
[2020-10-29] MEDS: FOLIC ACID 400 MCG TAB PO SCH (08:45)
[2020-10-29] MEDS: MAGNESIUM OXIDE 400 MG TAB PO SCH (08:46)
[2020-10-29] MEDS: CYANOCOBALAMIN 500 MCG TABLET (VITAMIN B-12) PO SCH (08:46)
[2020-10-29] MEDS: RANOLAZINE 500 MG ER TAB PO SCH (08:46)
[2020-10-29] MEDS: INSULIN ASPART 100 UNITS/ML 3 ML PEN SC SCH ×3 (08:52→17:29)
[2020-10-29] MEDS ORDERED: ISOSORBIDE MONO EXTENDED REL 30 MG TABCR PO SCH (09:00)
[2020-10-29] MEDS ORDERED: PANTOprazole 40 MG TAB PO SCH (09:00)
[2020-10-29] MEDS ORDERED: ATORVASTATIN 40 MG TAB PO SCH (09:00)
[2020-10-29] MEDS ORDERED: ASCORBIC ACID 500 MG TAB PO SCH (09:00)
--- NOTE | 2020-10-29 13:40 | Ultrasound Report ---
US venous doppler LE RT HISTORY: 70 years-old Male pain r thigh acute pain and swelling of the right lower extremity COMPARISON: Duplex venous Doppler study 07/24/2015 TECHNIQUE: Multiple real-time sonographic images of the right lower extremity deep venous structures were obtained assessing grayscale appearance, color and spectral flow FINDINGS: There is normal flow, compressibility, phasicity and augmentation of the right lower extremity deep v enous structures. IMPRESSION: No sonographic evidence of deep venous thrombosis. ACT 112: Negative or not required by law. The above report was generated using voice recognition software. It may contain grammatical, syntax o r spelling errors. Electronically signed by: Mateusz Orozco M.D. 10/29/2020 1:39 PM
--- NOTE | 2020-10-29 14:20 | Consultation Report ---
DATE OF CONSULTATION: 10/29/2020 HISTORY OF PRESENT ILLNESS: The patient is known to me. He has known left vertebral artery stenosis. As a youngster, he had a nerve injury in his left forearm. He indicates it affected all of the nerves in the left forearm and he has always been relatively stronger since that time in the right arm than the left arm. He also has a sense that he is somewhat weaker in the left lower extremity related to lumbar spine issues. He indicates he had a cauda equina syndrome in the late , which was treated operatively with some residual. On this background, additionally he has been a long-term diabetic and has diabetic neuropathy. For some time, the patient has felt that he tends to lose his balance more so when he turns to the left. Earlier this fall while staying with a daughter, he developed a recurrence of hiccups. He has had them as a child and throughout life, but these lasted longer than usual at this time, lasting 4 days. The patient indicates for weeks thereafter he slept 21 hours a day. The patient noted today some fluctuation in some neuropathic symptoms in his right leg, in that he always has a sense that the left leg is balloon like and suddenly the right leg felt somewhat balloon like. He also noted some pain when stepping down on his right foot and he noted uncharacteristically that when he turned to the right, he lost his balance. He had a sense that he was weaker in the right leg. His daughter is a physician and she examined him, although he was not aware of any cranial nerve symptoms or upper extremity symptoms, she noted that something about his speech was not quite right. When she examined him, it was found that he had some numbness in his right face, but no change in vision or facial droop and that he was weaker in his right arm than typical. The right arm is his dominant arm. Therefore, they sought medical attention. The only other significant recent change is that the patient had received a COVID-19 vaccination earlier this week and noted some bioccipital headache. He otherwise did not have a headache with this event. LABORATORY DATA: Notable for mild anemia and white count was 6.7, H and H 13/38, platelet count 235. INR 1.2, PTT 25. Electrolytes notable for a blood sugar of 133, alkaline phosphatase 126, LDL cholesterol 58. Lyme titer negative. SARS negative. CT of the head, which I have reviewed, is unremarkable. CTA shows a stenosis, unchanged focal severe stenosis in the intracranial portion of the left vertebral artery. MRI of the brain showed no acute abnormalities. Scattered foci of T2 hyperintensity in the periventricular and subcortical white matter nonspecific, but suggestive of mild microvascular ischemic changes. MRI of the cervical and thoracic spine showed no significant abnormality. There were mild degenerative changes and the spinal cord was normal. PAST MEDICAL HISTORY: Coronary artery disease, dyslipidemia, vertebral artery stenosis, diabetes, lumbar disk disease, peripheral neuropathy, rheumatic heart disease for which he is chronically on antibiotic suppression. Cardiac equina compression, history of LAD stent, hypothyroidism vertebrobasilar insufficiency, history of vertigo. ALLERGIES: TAMSULOSIN. HOME MEDICATIONS: B12, amoxicillin, atenolol, atorvastatin, Plavix, isosorbide, metformin, multiple vitamin, Niacin, Ranexa, ascorbic acid, aspirin, folic acid, Vyzulta ophthalmic solution, levothyroxine, Mag oxide, omeprazole. PAST SURGICAL HISTORY: Achilles tendon repair, sinus surgery, cataract surgery, tonsillectomy, lumbar laminectomy. FAMILY HISTORY: Diabetes, heart disease, stroke, vascular dementia, dyslipidemia, hypertension. SOCIAL HISTORY: Nonsmoker. The patient does not drink alcohol. PHYSICAL EXAMINATION: VITAL SIGNS: On exam, 109/57, pulse 64, respiration 18. NECK: There are no carotid bruits. HEART: No heart murmurs. Heart is regular rate and rhythm. NEUROLOGIC: Pupils are equal, round, reactive to light. The optic nerves are unremarkable. There is normal price, motility, normal facial sensation and facial symmetry. There is decreased light touch in the right side of the face. Speech and language are normal. Tongue is midline. There is normal bulk and tone. There may be some mild atrophy in the left tibialis anterior. Peripheral pulses are intact. The abdomen is soft and nontender. No calf swelling or thigh swelling or tenderness are noted. There is essentially full strength. There may be some minor weakness of the left EHL. The ankle jerks are absent. The right knee jerk is absent. The left knee jerk is 1. Toes are downgoing. Vibration is present at the ankles and there is a temperature level to the ankle. He maybe mildly less sensate to light touch in the sole of his right foot and to temperature in the right arm and to light touch in the right face. His gait is unremarkable. There is some titubation of the trunk with tandem. His Romberg is positive. [id number] and [id number] are normal. IMPRESSION AND PLAN: The patient with initial complaints of losing balance to the right, which is unusual for him. In general, I think his instability is related to diabetic neuropathy. Yesterday although his only complaints were in the right lower extremity, there were some findings in the face and right arm as observed by his daughter, a physician. The MRI of the brain shows nothing that would explain this, i.e., I do not think the patient had a stroke or transient ischemic attack and he still has some of subjective findings on exam, but MRI shows no acute abnormality. In that regard, I do not think his antiplatelet therapy needs to be changed. The patient does have an absent right knee jerk and complained of some right thigh pain. He could have a diabetic amyotrophy, although typically this is much more painful and there is associated weakness. Right L4 radiculopathy is within the differential. PLAN: MRI of the lumbar spine with and without contrast given his prior history of surgery. Venous Doppler of the right lower extremity. The patient could be discharged today if those things are unremarkable. As an outpatient, he needs a nerve conduction EMG of the right lower extremity, rule out femoral neuropathy/diabetic amyotrophy. The patient appears to have a peripheral neuropathy and this is the most likely etiology for his tendency to lose balance with turns. GERALDD
--- NOTE | 2020-10-29 14:39 | Hospitalist Progress Note ---
Date of Service October 29, 2020 Assessment & Plan (1) Stroke-like symptoms: (2) Right sided weakness: (3) Imbalance: Stroke like Symptoms DD: Can not rue out TIA; Right L4 Radiculopathy -Brain MRI:No acute intracranial abnormality. Scattered foci of T2 hyperintensity seen within the periventricular and subcortical white matter are nonspecific but favor microvascular ischemic change. -Head/Neck CTA: No significant stenosis, occlusion, or aneurysm within the [place]. No significant stenosis, occlusion, or dissection identified within the carotid arteries. No change in the focal severe stenosis within the intracranial portion of the left vertebral artery. Therefore. No acute intracranial abnormality. -Cervical MRI:No fractures within the cervical spine. Normal cervical spinal cord. Mild central canal narrowing and bilateral neural foraminal narrowing from C4 through C7 as described above. -Thoracic MRI:No fractures within the thoracic spine. Mild degenerative disc disease within the thoracic spine. However, no significant central canal or neural foraminal narrowing. Normal thoracic spinal cord. -Lumbar MRI:pending -Venous Doppler:No sonographic evidence of deep venous thrombosis. -Lyme Screen:Negative -Appreciate Neurology Input -PT/OT /Speech eval done -Continue aspirin, Plavix, atorvastatin -Advised RLE NCV and Z patch as outpatient -Needs follow up with Neurology upon discharge (4) CAD (coronary artery disease): (5) Dyslipidemia: Continue ASA, plavix, statin (6) Diabetes mellitus type 2 in nonobese: Hold Metformin. Insulin protocol while inpatient Monitor BGs (7) Lumbar degenerative disc disease: (8) Neuropathy of left lower extremity: Chronic lower back problems possibly cause of LE neuropathy. Follows with Neuro outpatient. (9) Rheumatic heart disease: (10) Chronic antibiotic suppression: Continue amoxicillin 500 mg BID for chronic suppressive therapy Hypothyroidism Continue levothyroxine Normal TSH (11) DVT prophylaxis: Lovenox SQ CODE STATUS Full code Disposition Plan to discharge home when medically stable Admission and Anticipated Discharge Date Admission Date: October 28, 2020 Subjective Patient is seen and examined at bedside Reports Right facial numbness and Right thigh pain Denies chest pain, dyspnea, dizziness, change in vision, nausea, abd pain Offers no other complaints Did well with PT/OT earlier today Discussed with Neurology today Review of Systems Review of Systems: All systems reviewed & are unremarkable except as noted in HPI & below Physical Exam Physical Exam: Physical Exam: Vitals signs as noted above General Appearance:Moderately built and nourished, no apparent distress Head: normocephalic, Atraumatic Eyes: normal inspection, EOMI Neck: supple, Trachea midline Respiratory/Chest: Normal breath sounds, CTA Cardiovascular: S1, S2, + murmur Abdomen/GI:Soft, Non tender, Bowel sounds present Extremities/Musculoskelatal:normal inspection, no edema Neurologic/Psych:AAOX3, Mild Right facial numbness, Minimal B/L UE weakness Skin: normal color, warm Results & Data Results & Data ([facility]) Vital Signs (Past 12 Hours) Vital Signs Temp Pulse Pulse Resp BP Pulse Ox 10/29/20 13:08 36.8 C 64 18 109/57 L 99 10/29/20 08:00 56 L 10/29/20 07:04 36.6 C 53 L 17 137/77 100 10/29/20 04:27 36.6 C 57 L 18 113/70 98 Laboratory Results Short CBC 10/29/20 Range/Units 05:25 WBC 6.16 (4.8-10.8) K/uL Hgb 12.7 L (14.0-18.0) g/dL Hct 34.6 L (42-52) % Plt Count 219 (130-400) K/uL BMP 10/29/20 05:25 Sodium 138 Potassium 3.8 Chloride 108 H Carbon Dioxide 26 BUN 19 H Creatinine 1.10 Glucose 112 H Calcium 8.9
--- NOTE | 2020-10-29 15:03 | Electrocardiogram Report ---
Test Reason : Blood Pressure : / mmHG Vent. Rate : 058 BPM Atrial Rate : 058 BPM P-R Int : 170 ms QRS Dur : 086 ms QT Int : 446 ms P-R-T Axes : 054 -17 092 degrees QTc Int : 437 ms Sinus bradycardia Nonspecific ST and T wave abnormality Abnormal ECG When compared with ECG of 28-OCT-2020 11:17, No significant change was found Confirmed by Chavez Mancuso ([id number]) on 10/29/2020 3:02:49 PM Referred By: REFERRED SELF Confirmed By:Chavez Mancuso
[2020-10-29] MEDS ORDERED: GADOBUTROL 65ML VIAL IV ONE (15:32)
[2020-10-29] MEDS: ENOXAPARIN INJ 40 MG/0.4 ML SYR SQ SCH (16:57)
--- NOTE | 2020-10-29 18:10 | Magnetic Resonance Report ---
MR lumbar spine wo/w con CLINICAL HISTORY: 70 years-old Male with pt with co rle weakness hx surg, roL4. Acute low back pain with lower extremity weakness. COMPARISON: MRI thoracic spine 10/28/2020, MRI lumbar spine 07/04/2015. TECHNIQUE: Multiplanar, multi sequence MRI of the lumbar spine was performed following the intravenou s administration of 8.0 mL Gadavist. FINDINGS: Imaged intra-abdominal structures and paraspinal tissues demonstrate no acute abnormality. Conus medu llaris terminates at T12-L1. Signal within the imaged thoracic spinal cord and cauda equina is unrema rkable. No acute fracture or subluxation. Mild nonspecific marrow edema of the left iliac bone is par tially imaged (for example please see sagittal STIR images #1 and 2). Mild soft tissue edema surround s the facets of the lower lumbar spine. Mild Modic type I endplate degeneration at L3-L4. 7 degrees l evoscoliosis measured from L2-L4. Multilevel intervertebral disc space narrowing with spondylitic spu rring and facet arthrosis. No abnormal enhancement. T12-L1: Facet arthrosis with ligamentum flavum thickening. No central canal or neural foraminal sten osis. L1-L2: Mild posterior intervertebral disc space narrowing and spondylitic spurring with posterior an nular disc bulge. Ligamentum flavum thickening with moderate facet arthrosis. AP dimension of the the radha sac measures 7 mm. There is moderate central canal stenosis with mild to moderate bilateral neura l foraminal narrowing. Findings have progressed from comparison. L2-L3: Mild intervertebral disc space narrowing. Spondylitic spurring with circumferential annular d isc bulge. Ligamentum flavum thickening with moderate facet arthrosis. AP dimension of the thecal sac measures 6 mm. Moderate central canal stenosis with moderate narrowing of the lateral recesses. Mild left with mild to moderate right neural foraminal narrowing. Mildly progressed narrowing of the neur oforamina. L3-L4: Moderate intervertebral disc space narrowing with spondylitic spurring and posterior disc ost eophyte complex. Facet arthrosis. Interval laminectomy. Flattening of the ventral thecal sac. Severe narrowing of the lateral recesses. Moderate to severe left with moderate right neural foraminal narro wing. L4-L5: Moderate intervertebral disc space narrowing with partial degenerative bony fusion. Spondylit ic spurring with circumferential annular disc bulge and central disc osteophyte complex. Interval vieira inectomy. Moderate facet arthrosis. Flattening of the ventral thecal sac with moderate left and mild right lateral recess narrowing. No significant central canal stenosis. Mild to moderate left with mil d right neural foraminal narrowing. L5-S1: Small posterior annular disc bulge with mild spondylitic spurring. Moderate facet arthrosis w ith trace left facet effusion. Central canal is patent. Mild right with [id number]-aepzfxpy left neural foraminal stenosis. IMPRESSION: 1. Interval laminectomy at L3-L4 and L4-L5. 2. Multilevel discogenic degeneration with ligamentum flavum thickening and facet arthrosis resulting in varying degrees of multilevel neuroforaminal narrowing. 3. Moderate central canal stenosis at L1-L2 and L2-L3. 4. No acute fracture, subluxation or bone marrow edema. 5. No abnormal enhancement. ACT 112: Negative or not required by law. The above report was generated using voice recognition software. It may contain grammatical, syntax o r spelling errors. Dictated: 10/29/2020 4:54 PM Transcribed: 10/29/2020 5:28 PM Samara [id number] [email or web address] Electronically signed by: Mateusz Orozco M.D. 10/29/2020 6:09 PM
[2020-10-29] MEDS ORDERED: STROKE PATIENT DISCHARGE STA (18:17)
--- NOTE | 2020-10-29 18:24 | Discharge Summary ---
Date of Service October 29, 2020 Admission HPI Per Admitting Provider Patient is a 70 yo male with history of CAD w/hx of LAD stenting, Rheumatic heart disease on chronic abx, DM, cauda equina syndrome s/p lumbar laminectomy, dyslipidemia and hypothyroidism who presented to the ED for stroke-like symptoms. Around 10:15 AM this morning, the patient noted that his right leg felt heavy. He also noted that he seemed off balance. He typically has left lower extremity weakness for unknown reason, ? DM neuropathy, but his right side felt weaker this morning. He tried to do a squat and noted that it "didn't feel right". He then noted that his RUE was slightly weak as well and he was having right facial paresthesia/numbness. His daughter, a medical provider was with him and did an exam at that time. She noted some mild weakness subjectively of the RUE and RLE compared to the LLE and LUE. No facial droop or speech deficit. Of note, the patient did have a Pfizer COVID-19 vaccine last 10/21/20. He had mild headache on / that subsided. He does follow with Dr. Lucretia brasher for outpatient neurology with history history of neuropathy. Since presentation, he has had CT Head, CTA Head & Neck which were unremarkable. His symptoms are improved, but he still feels that his right upper and especially lower extremity feels 'off'. He has had no swallowing or speech difficulty. Lab evaluation revealed mild anemia with Hgb 13.5, within normal electrolytes other than mildly elevated glucose of 133. Troponin was negative. LFTs were within norm other than slightly elevated Alk Phos of 126. No other associated symptoms. He has been feeling well otherwise recently. Admission Exam Per Admitting Provider Physical Exam Constitutional: WD/WN, vitals as above Eyes: PERRL, conjunctivae normal, anicteric sclerae ENMT: external ear and nose normal, oropharynx normal Neck: trachea midline, no thyromegaly Respiratory: normal respiratory effort, lungs clear to auscultation Cardiovascular: RRR, no murmur, no edema Gastrointestinal (Abdomen): normal bowel sounds, soft, nontender, no hepatosplenomegaly Musculoskeletal: no cyanosis or clubbing, extremities motor strength 5/5 Skin: no rashes, warm and dry Neurologic: PERRL, EOMI, accommodation nl, no face palsy, no dysarthria moves all extremities and awake; no focal motor deficits Motor/Sensory: no fasciculations Cranial Nerves: PERRL and EOM intact bilaterally Psychiatric: A+Ox3, euthymic affect Principal Diagnosis Stroke like Symptoms Discharge Data Allergies Allergy/AdvReac Type Severity Reaction Status Date / Time tamsulosin Allergy Intermediate INCREASED Verified 08/22/18 14:57 B/P, [place], DECREASED URINE OUTPUT Consultations 10/28/20 12:28 ED Decision to Admit Stat 10/28/20 13:47 Consult Neurology Routine Procedures Performed -Brain MRI:No acute intracranial abnormality. Scattered foci of T2 hyperintensity seen within the periventricular and subcortical white matter are nonspecific but favor microvascular ischemic change. -Head/Neck CTA: No significant stenosis, occlusion, or aneurysm within the [place]. No significant stenosis, occlusion, or dissection identified within the carotid arteries. No change in the focal severe stenosis within the intracranial portion of the left vertebral artery. Therefore. No acute intracranial abnormality. -Cervical MRI:No fractures within the cervical spine. Normal cervical spinal cord. Mild central canal narrowing and bilateral neural foraminal narrowing from C4 through C7 as described above. -Thoracic MRI:No fractures within the thoracic spine. Mild degenerative disc disease within the thoracic spine. However, no significant central canal or neural foraminal narrowing. Normal thoracic spinal cord. -Lumbar MRI:Interval laminectomy at L3-L4 and L4-L5. Multilevel discogenic degeneration with ligamentum flavum thickening and facet arthrosis resulting in varying degrees of multilevel neuroforaminal narrowing. Moderate central canal stenosis at L1-L2 and L2-L3. No acute fracture, subluxation or bone marrow edema. No abnormal enhancement. -Venous Doppler:No sonographic evidence of deep venous thrombosis. Ordered Studies 10/28/20 10:57 CT angio head w con Stat CT angio neck with con Stat CT head/brain wo con Stat 10/28/20 13:47 MR brain wo con Stat MR cervical spine wo con Routine MR thoracic spine wo con Stat 10/29/20 12:37 MR lumbar spine wo/w con Routine 10/29/20 12:38 US venous doppler LE RT Routine Hospital Course (1) Stroke-like symptoms: (2) Right sided weakness: (3) Imbalance: Stroke like Symptoms DD: Can not rue out TIA; Right L4 Radiculopathy -Brain MRI:No acute intracranial abnormality. Scattered foci of T2 hyperintensity seen within the periventricular and subcortical white matter are nonspecific but favor microvascular ischemic change. -Head/Neck CTA: No significant stenosis, occlusion, or aneurysm within the [place]. No significant stenosis, occlusion, or dissection identified within the carotid arteries. No change in the focal severe stenosis within the intracranial portion of the left vertebral artery. Therefore. No acute intracranial abnormality. -Cervical MRI:No fractures within the cervical spine. Normal cervical spinal cord. Mild central canal narrowing and bilateral neural foraminal narrowing from C4 through C7 as described above. -Thoracic MRI:No fractures within the thoracic spine. Mild degenerative disc disease within the thoracic spine. However, no significant central canal or neural foraminal narrowing. Normal thoracic spinal cord. -Lumbar MRI:Interval laminectomy at L3-L4 and L4-L5. Multilevel discogenic degeneration with ligamentum flavum thickening and facet arthrosis resulting in varying degrees of multilevel neuroforaminal narrowing. Moderate central canal stenosis at L1-L2 and L2-L3. No acute fracture, subluxation or bone marrow edema. No abnormal enhancement. -Venous Doppler:No sonographic evidence of deep venous thrombosis. -Lyme Screen:Negative -Appreciate Neurology Input -PT/OT /Speech eval done -Continue aspirin, Plavix, atorvastatin -Advised RLE NCV and Z patch as outpatient -Needs follow up with Neurology upon discharge -Offered to discuss with spine surgery regarding MRI, Patient prefers to follow- up as outpatient. (4) CAD (coronary artery disease): (5) Dyslipidemia: Continue ASA, plavix, statin (6) Diabetes mellitus type 2 in nonobese: Hold Metformin. Insulin protocol while inpatient Monitor BGs (7) Lumbar degenerative disc disease: (8) Neuropathy of left lower extremity: Chronic lower back problems possibly cause of LE neuropathy. Follows with Neuro outpatient. (9) Rheumatic heart disease: (10) Chronic antibiotic suppression: Continue amoxicillin 500 mg BID for chronic suppressive therapy Hypothyroidism Continue levothyroxine Normal TSH (11) DVT prophylaxis: Lovenox SQ CODE STATUS Full code Disposition Plan to discharge home when medically stable Total Time Total Time Spent Total Time Spent (In Minutes): 42 minutes Total Time Includes: Examination of the Patient, Discharge Planning, Medication Reconciliation, Communication With Other Providers and Other Discharge Plan Discharge Items Patient Disposition: Home - Self-Care Reason For Visit: CVA SYMPTOMS Discharge Diagnosis: Stroke like Symptoms Activity: Per Instructions section Exercise/Sports: Gradually increase as tolerated Non-emergency contact: Primary Care Provider and Neurologist Call non-emergency contact if: you have any medication questions, your symptoms worsen, your pain is not controlled, your pain is worsening, your pain is concerning for you and you have a fever Follow-up/Referrals: London Ryan MD [Primary Care Provider] - Diet: Heart Healthy Addtl Attending Provider Instructions: Follow-up with your primary care physician Dr. Ryan in 1 week upon discharge Follow-up with your neurologist Dr. 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 Some specific ways to lower your chance of stroke are: * If you are a smoker, now is the time to stop smoking cigarettes * If you are diabetic, improve the control of your blood sugars * Avoid excessive amounts of alcohol * Control high blood pressure * Lose weight if you are overweight * Be sure to lead an active lifestyle * Eat a healthy diet low in salt, cholesterol and fat You should know about other risk factors for stroke that you are unable to control. These include: * Age 55 years or older * Male gender * Certain racial groups: , or / * Family History of Stroke, Mini stroke or Heart Attack * Sickle Cell Disease Follow Up: It is important for you to keep your follow up appointments with your medical provider. Who to Call and When: Medical Emergencies: Call 911 immediately if you experience any of the following warning signs and symptoms of Stroke: * Sudden numbness or weakness of the face, arm or leg, especially on one side of the body * Sudden confusion, trouble speaking or understanding * Sudden trouble seeing in one or both eyes * Sudden trouble walking, dizziness, loss of balance or coordination * Sudden severe headache with no cause Do not delay calling 911 if you experience any warning signs or symptoms of a stroke. Delay in seeking medical attention may affect what treatments can be given to you. . Pending Studies at Discharge: No Stand-Alone Forms: EmergentDetection, Smoking Cessation Medications and DC Order Prescriptions: New pantoprazole 20 mg tablet,delayed release (DR/EC) 20 mg PO DAILY Qty: 30 RF: 1 Continued multivitamin Tablet 1 tab PO QPM RF: 0 amoxicillin 500 mg Capsule 500 mg PO BID RF: 0 atorvastatin 80 mg Tablet 80 mg PO QAM RF: 0 isosorbide mononitrate 30 mg Tablet Extended Release 24 Hr 30 mg PO QAM RF: 0 atenolol 25 mg Tablet 25 mg PO HS RF: 0 clopidogrel 75 mg Tablet 75 mg PO QPM RF: 0 niacin 500 mg Capsule, Extended Release 500 mg PO QPM RF: 0 metformin 500 mg Tablet Extended Release 24 Hr 500 mg PO BID RF: 0 ranolazine [Ranexa] 500 mg Tablet Extended Release 12 Hr 500 mg PO BID RF: 0 B12 1,000 mg 1 tab PO BID RF: 0 aspirin [Aspirin Low-Strength] 81 mg Tablet,Delayed Release (Dr/Ec) 81 mg PO HS RF: 0 ascorbic acid (vitamin C) [Vitamin C] 250 mg Tablet 250 mg PO DAILY RF: 0 folic acid 400 mcg Tablet 0.4 mg PO BID RF: 0 levothyroxine 88 mcg tablet 88 mcg PO DAILY RF: 0 Vyzulta 0.024 % drops 1 drp ophthalmic (eye) HS RF: 0 magnesium oxide 400 mg magnesium Tablet 400 mg PO BID RF: 0 Discontinued omeprazole 20 mg Capsule,Delayed Release(Dr/Ec) 20 mg PO DAILY RF: 0 Discharge Orders: Discharge Order (Routine); Ordered 10/29/20 Ordered By: Aldair Gongora Admission Data Admit Date/Time: 10/28/20 12:47 Attending Provider: Aldair Gongora Admit Provider: Dwight Harris Primary Care Provider: London Ryan Other Providers: Dwight Harris ; Jodi Reveles Other Interventions: Discharge Summary Assessment (RN) Last Done: 10/29/20 17:22
[2020-10-30 05:47] LABS: Estimated Average Glucose 131 mg/dl; Hemoglobin A1C 6.2 % (4.5-5.6)
--- NOTE | 2020-11-01 14:36 | Coding Query ---
CODING QUERY To promote full compliance with coding requirements relating to patient care, provider participation is requested in all cases of provider relations manager uncertainty. Please assist us with the question(s) below: Coding Question(s): Pt presenting with right LE weakness, imbalance issues. 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 [facility] C/S impression " ischemic stroke". NIHSS score 1. DS states " stroke- like symptoms as the prin dx . Please document, if known or suspected, the etiology of the right LE weakness and imbalance. Thanks for your help! José Miguel Pelletier [facility] Physician's Response(s): Unclear Diagnosis currently. Possible TIA Principal Diagnosis: "that condition established after study, to be chiefly responsible for occasioning the admission of the patient to the hospital for care." Co-Existing Principal Diagnosis: "when two or more diagnoses equally meet the criteria for principal diagnosis as determined by the circumstances of admission, diagnostic work up, and/or therapy provided, and the Alphabetic Index, Tabular List, or another coding guideline does not provide sequencing direction, any one of the diagnoses may be sequenced first." "When the physician has documented what appears to be a current diagnosis in the body of the record, but has not included the diagnosis in the final diagnostic statement, the physician should be asked whether the diagnosis should be added." (Source [facility] 2 QTR90. p3-4) WILBERT
--- NOTE | 2020-11-13 10:49 | Coding Query ---
A supporting diagnosis is required for the test/procedure performed on this patient in order for us to be reimbursed by the patient's insurance. Please provide a supporting diagnosis for the following test/procedure listed below next to the test name along with your signature. *If there is no additional diagnosis for this patient that would support the following test/procedure please document that below next to the test/procedure. Test(s)/Procedure(s) that require a supporting diagnosis: VENOUS DOPPLER LOWER EXT UNILA DIAGNOSIS: Pain and swelling right lower extremity. Provider Signature: Jodi Reveles MD Date: _11/14/2020 Thank you Carie Watts Health Information Management Once completed, please kindly fax back to [phone] For questions please call [phone] WILBERT
== END 2020-10-29 18:59 | disposition home or self-care (01) | DRG 69 ==
LOC: ED 10:41 → 2S 12:47 → SUATTDRO 12:47 → 2S 13:30